=== PATIENT | female | born 1965 | race Caucasian/White ===

== ENCOUNTER → 2021-01-11 12:02 | Outpatient (CLI) | payer OTHER, SELFPAY ==
--- NOTE | 2021-01-11 12:06 | DI.RAD.S_ITS ---
PROCEDURE: XR KNEE RT 3V INDICATIONS: RT SHOULDER/KNEE POST FALL TECHNIQUE: 3 views of the knee were acquired. COMPARISON: None. FINDINGS: Bones: There are degenerative changes of the right knee with medial joint space narrowing. Soft tissues: No joint effusion. No suspicious soft tissue calcifications. IMPRESSION: 1. No acute abnormality. 2. Tricompartmental degenerative changes consistent with osteoarthritis. Dictated by: Aki Moreno M.D. on 01/11/2021 at 18:24 Approved by: Aki Moreno M.D. on 01/11/2021 at 18:25
--- NOTE | 2021-01-11 12:06 | DI.RAD.S_ITS ---
PROCEDURE: XR SHOULDER RT MIN 2V INDICATIONS: RT SHOULDER/KNEE POST FALL TECHNIQUE: 3 views of the shoulder were acquired. COMPARISON: None. FINDINGS: Bones: No fractures or dislocations. No suspicious bony lesions. Visualized ribs appear intact. Soft tissues: No suspicious soft tissue calcifications. IMPRESSION: Mild AC joint osteoarthritis without trauma. Dictated by: Ra Horner M.D. on 01/11/2021 at 15:22 Approved by: Ra Horner M.D. on 01/11/2021 at 15:22
== END ==
PROVIDERS: PCP Registered Nurse; Referring Provider Registered Nurse; Visit Provider Registered Nurse
DX: M25.511 Pain in right shoulder (principal); M19.011 Primary osteoarthritis, right shoulder; M25.561 Pain in right knee
CPT/HCPCS: 73030; 73562

== ENCOUNTER → 2021-01-17 08:52 | Outpatient (CLI) | payer OTHER, SELFPAY ==
[2021-01-17 10:23] LABS: Add Manual Diff / Slide Review NO; Basophils Absolute Auto 100 /uL (0-100); Basophils Percent Auto 0.9 % (0-2); Eosinophils Absolute Auto 300 /uL (0-450); Hematocrit 39.5 % (36-46); Hemoglobin 13.4 g/dL (12.0-16.0); Lymphocytes Absolute Auto 4100 /uL (1100-4500); Lymphocytes Percent Auto 36.1 % (25-40); Mean Corpuscular HGB Conc 33.8 % (30-36); Mean Corpuscular Hemoglobin 27.6 PG (26-34); Mean Corpuscular Volume 81.5 fL (80-100); Monocytes Absolute Auto 700 /uL (0-900); Monocytes Percent Auto 6.4 % (3-14); Neutrophils Absolute Auto 6200 /uL (1500-7000); Neutrophils Percent Auto 53.6 % (50-75); Platelet Count 269 X10^3/uL (150-400); Red Blood Cell Count 4.85 X10^6/uL (4.0-5.2); Red Cell Distribution Width 12.8 % (11.6-14.8); White Blood Cell Count 11.5 X10^3/uL (4.5-11.0)
[2021-01-17 10:25] LABS: Creatinine Urine Random 139.6 mg/dL
[2021-01-17 10:28] LABS: Hemoglobin A1C% w Est Avg Glu 6.9 % (4.0-6.0)
[2021-01-17 10:30] LABS: Microalbumin Urine Random < 0.6 mg/dL (0-1.6)
[2021-01-17 10:34] LABS: Alanine Aminotransferase 35 IU/L (<35); Albumin Globulin Ratio 1.5 (1.0-2.8); Alkaline Phosphatase 100 U/L (38-126); Aspartate Aminotransferase 40 IU/L (14-36); BUN Creatinine Ratio 26.2 (6-22); Bilirubin Total 0.6 mg/dL (0.2-1.3); Blood Urea Nitrogen 16 mg/dL (7-17); Calcium 9.5 mg/dL (8.4-10.2); Carbon Dioxide 27 mmol/L (22-32); Chloride 102 mmol/L (98-107); Cholesterol 120 mg/dL (140-199); Estimated Glomerular Filt Rate > 60.0 mL/min (>60); Globulin 2.7 g/dL (1.7-4.1); Glucose 130 mg/dL (70-100); HDL Cholesterol 40 mg/dL (40-60); HEMOLYSIS < 15 (0-50); LDL Cholesterol Calculated 49 mg/dL (<100); Potassium 4.4 mmol/L (3.4-5.1); Sodium 138 mmol/L (137-145); Total Protein 6.7 g/dL (6.3-8.2); Triglycerides 154 mg/dL (35-150)
[2021-01-17 10:59] LABS: Free T4, Direct Thyroxine 0.94 ng/dL (0.78-2.19)
[2021-01-17 11:13] LABS: Thyroid Stimulating Hormone 2.28 uIU/mL (0.47-4.68)
== END ==
PROVIDERS: PCP Registered Nurse; Referring Provider Registered Nurse; Visit Provider Registered Nurse
DX: E11.9 Type 2 diabetes mellitus without complications (principal); K58.9 Irritable bowel syndrome, unspecified; E78.5 Hyperlipidemia, unspecified; F41.8 Other specified anxiety disorders; G62.9 Polyneuropathy, unspecified
CPT/HCPCS: 36415; 80053; 80061; 82043; 82570; 83036; 84439; 84443; 85025

== ENCOUNTER → 2021-02-05 10:57 | Outpatient (CLI) | payer OTHER, SELFPAY ==
[2021-02-05 12:27] LABS: Add Manual Diff / Slide Review NO; Basophils Absolute Auto 200 /uL (0-100); Basophils Percent Auto 1.3 % (0-2); Eosinophils Absolute Auto 500 /uL (0-450); Eosinophils Percent Auto 4.2 % (2-4); Hematocrit 42.7 % (36-46); Lymphocytes Absolute Auto 4200 /uL (1100-4500); Lymphocytes Percent Auto 35.2 % (25-40); Mean Corpuscular HGB Conc 32.8 % (30-36); Mean Corpuscular Hemoglobin 27.1 PG (26-34); Mean Corpuscular Volume 82.6 fL (80-100); Monocytes Absolute Auto 600 /uL (0-900); Monocytes Percent Auto 5.3 % (3-14); Neutrophils Absolute Auto 6400 /uL (1500-7000); Platelet Count 331 X10^3/uL (150-400); Red Blood Cell Count 5.17 X10^6/uL (4.0-5.2); Red Cell Distribution Width 13.4 % (11.6-14.8); White Blood Cell Count 11.9 X10^3/uL (4.5-11.0)
[2021-02-05 12:51] LABS: Cholesterol 119 mg/dL (140-199); HDL Cholesterol 39 mg/dL (40-60); LDL Cholesterol Calculated 33 mg/dL (<100); Triglycerides 234 mg/dL (35-150)
== END ==
PROVIDERS: PCP Registered Nurse; Referring Provider Registered Nurse; Visit Provider Registered Nurse
DX: E78.5 Hyperlipidemia, unspecified (principal); D72.829 Elevated white blood cell count, unspecified
CPT/HCPCS: 36415; 80061; 85025

== ENCOUNTER → 2021-02-22 12:36 | Outpatient (CLI) | payer OTHER, SELFPAY ==
--- NOTE | 2021-02-22 12:37 | DI.US.S_ITS ---
PROCEDURE: US ABDOMEN LIMITED INDICATIONS: RT INGUINAL PAIN TECHNIQUE: Real-time focused scanning was performed of the abdomen, with image documentation. COMPARISON: None. FINDINGS: Image quality limited secondary to patient body habitus. No definite mass or hernia identified in the right lower quadrant/right groin in the region of reported pain.. IMPRESSION: Limited examination demonstrates no definite hernia or mass in the region of clinical interest. Dictated by: Kasey Funes MD, PhD on 02/22/2021 at 16:44 Approved by: Kasey Funes MD, PhD on 02/22/2021 at 16:44
== END ==
PROVIDERS: PCP Registered Nurse; Referring Provider Registered Nurse; Visit Provider Registered Nurse
DX: R10.31 Right lower quadrant pain (principal)
CPT/HCPCS: 76705

== ENCOUNTER → 2021-03-20 14:26 | Outpatient (CLI) | payer OTHER, SELFPAY ==
[2021-03-20 16:12] LABS: Add Manual Diff / Slide Review NO; Basophils Absolute Auto 100 /uL (0-100); Basophils Percent Auto 0.9 % (0-2); Eosinophils Absolute Auto 300 /uL (0-450); Eosinophils Percent Auto 2.8 % (2-4); Hematocrit 38.6 % (36-46); Hemoglobin 13.1 g/dL (12.0-16.0); Lymphocytes Absolute Auto 4100 /uL (1100-4500); Lymphocytes Percent Auto 38.2 % (25-40); Mean Corpuscular Hemoglobin 28.2 PG (26-34); Mean Corpuscular Volume 82.8 fL (80-100); Monocytes Absolute Auto 600 /uL (0-900); Neutrophils Absolute Auto 5500 /uL (1500-7000); Neutrophils Percent Auto 52.1 % (50-75); Platelet Count 290 X10^3/uL (150-400); Red Blood Cell Count 4.66 X10^6/uL (4.0-5.2); Red Cell Distribution Width 12.8 % (11.6-14.8); White Blood Cell Count 10.6 X10^3/uL (4.5-11.0)
== END ==
PROVIDERS: PCP Registered Nurse; Referring Provider Registered Nurse; Visit Provider Registered Nurse
DX: R89.9 Unspecified abnormal finding in specimens from other organs, systems and tissues (principal)
CPT/HCPCS: 36415; 85025

== ENCOUNTER → 2021-03-22 09:10 | Outpatient (CLI) | payer OTHER, SELFPAY ==
[2021-03-22 10:23] LABS: BUN Creatinine Ratio 24.7 (6-22); Blood Urea Nitrogen 18 mg/dL (7-17); Calcium 9.5 mg/dL (8.4-10.2); Carbon Dioxide 29 mmol/L (22-32); Chloride 102 mmol/L (98-107); Estimated Glomerular Filt Rate > 60.0 mL/min (>60); Glucose 127 mg/dL (70-100); HEMOLYSIS < 15 (0-50); Sodium 137 mmol/L (137-145)
== END ==
PROVIDERS: PCP Registered Nurse; Referring Provider Registered Nurse; Visit Provider Registered Nurse
DX: Z01.812 Encounter for preprocedural laboratory examination (principal); I10 Essential (primary) hypertension
CPT/HCPCS: 36415; 80048

== ENCOUNTER → 2021-03-22 09:26 | Outpatient (CLI) | payer OTHER, SELFPAY ==
--- NOTE | 2021-03-22 09:29 | DI.CT.S_ITS ---
PROCEDURE: CT ABDOMEN PELVIS W CON INDICATIONS: abdominal pain TECHNIQUE: After the administration of oral and IV contrast, axial sections were acquired from the lung bases to the pubic symphysis. Coronal and sagittal reformats were performed. For radiation dose reduction, the following was used: automated exposure control, adjustment of mA and/or kV according to patient size. COMPARISON: [facility], , US ABDOMEN LIMITED, 02/22/2021, 12:17. FINDINGS: Image quality: Excellent. Lung bases: Unremarkable. Heart: No significant findings. ABDOMEN: Liver: Hepatic steatosis. Gallbladder: Not distended. No calcified gallstones. Biliary ducts: Unremarkable. Pancreas: No peripancreatic fluid collection. Spleen: Unremarkable. Adrenal Glands: Unremarkable. Kidneys and Ureters: No hydronephrosis. The mid right ureter is patulous, (4/41). No calcified kidney stones seen. Punctate cortical hypodensity in the right kidney is too small to further characterize. Stomach and Bowel: Stomach, small bowel loops, and colon are unremarkable. A few colonic diverticuli. The appendix is not dilated, (2/68). Peritoneum: No abnormal intraperitoneal fluid. No free air. Ventral Wall: Tiny umbilical hernia. Abdominal Nodes: No retroperitoneal or mesenteric adenopathy by size criteria. Vessels: Aorta and inferior vena cava are normal in size. PELVIS: Pelvic Organs: Uterus is unremarkable. Bladder: No bladder calculus. Pelvic Nodes: No enlarged lymph nodes. Miscellaneous: No inguinal hernias are seen. Bones: Unremarkable. Lumbar edema. IMPRESSION: 1. The appendix is not dilated. 2. Mid right ureter is patulous. No kidney stones demonstrated. No hydronephrosis. No free fluid. 3. Diverticulosis. No diverticulitis. 4. Hepatic steatosis. Dictated by: Tejas Waller M.D. on 03/22/2021 at 12:26 Approved by: Tejas Waller M.D. on 03/22/2021 at 12:35
== END ==
PROVIDERS: PCP Registered Nurse; Referring Provider Registered Nurse; Visit Provider Registered Nurse
DX: Z01.812 Encounter for preprocedural laboratory examination (principal); R10.9 Unspecified abdominal pain; K76.0 Fatty (change of) liver, not elsewhere classified; K57.90 Diverticulosis of intestine, part unspecified, without perforation or abscess without bleeding; I10 Essential (primary) hypertension
CPT/HCPCS: 36415; 74177; 80048; Q9967

== ENCOUNTER → 2021-04-09 19:10 | Outpatient (CLI) | payer OTHER, SELFPAY ==
[2021-04-09 20:56] LABS: COVID19 -Nasal RAPID POSITIVE (Negative)
== END ==
PROVIDERS: PCP Registered Nurse; Visit Provider Physician Assistant
DX: U07.1 COVID-19 (principal)
CPT/HCPCS: 87635

== ENCOUNTER → 2021-05-07 08:18 | Outpatient (CLI) | payer OTHER, SELFPAY ==
--- NOTE | 2021-05-07 08:19 | DI.MG.S_ITS ---
BILATERAL DIGITAL SCREENING MAMMOGRAM 3D/2D WITH CAD: 05/07/2021 CLINICAL: Routine screening. Family history of breast cancer. Comparison is made to exams dated: 05/14/2019 mammogram, 12/01/2015 mammogram, and 12/02/2013 mammogram - outside facility. There are scattered fibroglandular elements in both breasts. Current study was also evaluated with a Computer Aided Detection (CAD) system. No significant masses, calcifications, or other findings are seen in either breast. There has been no significant interval change. IMPRESSION: NEGATIVE There is no mammographic evidence of malignancy. A 1 year screening mammogram is recommended. This exam was interpreted at Station ID: [id number]. NOTE: For mammograms, a report in lay terms will be sent to the patient. Approximately 15% of breast malignancies will not be visualized mammographically. In the management of a palpable breast mass, a negative mammogram must not discourage biopsy of a clinically suspicious lesion. Electronically Signed By: Juan edwards/kathrin:05/07/2021 08:54:47 letter sent: Normal Exam ACR BI-RADS Category 1: Negative [id number]
== END ==
PROVIDERS: PCP Registered Nurse; Referring Provider Registered Nurse; Visit Provider Registered Nurse
DX: Z12.31 Encounter for screening mammogram for malignant neoplasm of breast (principal); Z80.3 Family history of malignant neoplasm of breast
CPT/HCPCS: 77063; 77067

== ENCOUNTER → 2021-05-08 10:14 | Outpatient (CLI) | payer OTHER, SELFPAY ==
--- NOTE | 2021-05-08 10:15 | DI.RAD.S_ITS ---
PROCEDURE: XR LUMBAR SPINE 2-3V INDICATIONS: lower back pain/RADICUOPATHY TECHNIQUE: 3 views of the lumbar spine were acquired. COMPARISON: [facility], CT, CT ABDOMEN PELVIS W CON, 03/22/2021, 10:26. FINDINGS: Bones: 5 [id number] vertebrae are present. Trace spondylolisthesis L4-L5. Endplate osteophytes indicate mild early multilevel disc degeneration. Mild facet joint arthropathy at the L4-L5 and L5-S1 levels.. No vertebral body compression fractures. No suspicious bony lesions. Soft tissues: Overlying bowel gas pattern is normal. No suspicious soft tissue calcifications. IMPRESSION: Mild multilevel spondylosis. Dictated by: Jose C Maeys [facility] Interpreted: Fabiano Victoria MD on 05/08/2021 at 10:57 Transcribed by: MARV on 05/08/2021 at 10:58 Approved by: Fabiano Victoria M.D. on 05/08/2021 at 11:52
[2021-05-08 11:57] LABS: Creatinine Urine Random 207.5 mg/dL
[2021-05-08 11:58] LABS: Hemoglobin A1C% w Est Avg Glu 6.6 % (4.0-6.0)
[2021-05-08 12:01] LABS: Microalbumi Creatinin Ratio Ur 4.3 ug/mg CR (<30); Microalbumin Urine Random 0.9 mg/dL (0-1.6)
== END ==
PROVIDERS: PCP Registered Nurse; Referring Provider Registered Nurse; Visit Provider Registered Nurse
DX: M47.26 Other spondylosis with radiculopathy, lumbar region (principal); E11.9 Type 2 diabetes mellitus without complications
CPT/HCPCS: 36415; 72100; 82043; 82570; 83036

== ENCOUNTER → 2021-06-12 09:55 | Outpatient (CLI) | payer OTHER, SELFPAY ==
[2021-06-12 10:41] LABS: COVID19 -Nasal RAPID Negative (Negative)
== END ==
PROVIDERS: PCP Registered Nurse; Visit Provider Urology
DX: Z20.822 Contact with and (suspected) exposure to COVID-19 (principal)
CPT/HCPCS: 87635; C9803

== ENCOUNTER 2021-06-14 07:07 | Day surgery (SDC) | payer OTHER, SELFPAY ==
[2021-06-12 09:32] VITALS: BMI 47.2
[2021-06-14] VITALS (8 sets, daily range): BP systolic 105–128; BP diastolic 52–77; PULSE 65–80; RESP 10–18; TEMP 36.2–37.1; O2SAT 90–99; BMI 47.2
[2021-06-14] MEDS: LACTATED RINGERS 1,000 ML 42 ML IV (07:43)
--- NOTE | 2021-06-14 07:51 | PM.PREOP ---
Pre-operative Note COVID-19 COVID-19 status: Negative Result date/Date tested (Pos, Neg/Pending): 06/12/21 Interval Note History & Physical reviewed/Exam performed by Physician: Yes Changes to H&P: No
[2021-06-14] MEDS: IOPAMIDOL 15 ML VIAL INJ (08:55)
--- NOTE | 2021-06-14 08:55 | SUR.OPER ---
Lithotomy on padded OR bed, head on pillow, arms secured on padded arm boards at <90 degrees abduction. Legs secured in padded yellow fins stirrups.
[2021-06-14] MEDS: CIPROFLOXACIN 400 MG/200 ML PIGGYBACK 200 MG IV (09:03)
--- NOTE | 2021-06-14 09:13 | P.OP_ITS ---
Procedure & Clinicians Procedure: Cystoscopy with right retrograde pyelogram Same procedure as scheduled: Yes Indications: This is a very pleasant 55-year-old female who presented with complaint of recurring urinary tract infections and right lower quadrant pain. She had imaging which revealed a patulous right ureter without definitive etiology. She presents this time for cystoscopy right retrograde pyelogram and possible cystogram to evaluate for etiology. Surgeon: Jai Modi Click Yes if Unassisted: Yes Anesthesia Type: General Operative Notes Findings: External genitalia are normal. Urethra is normal along its length with normal mucosa. The ureteral orifices in normal position with clear efflux. Mucosa is normal no papillary lesions or other abnormalities are noted. Given that the right ureteral orifices in orthotopic position and the findings of the retrograde pyelogram a cystogram was not necessary. The right ureter was normal. There was a narrowing at the vessels but this drained quickly and easily there was no obstruction. There were no filling defects in the ureter and normal anatomy was observed. There were no stones on the open films. In a word normal cystoscopy and normal retrograde pyelogram save some narrowing at the level of the vessels this was nonobstructive. Closure Type: not applicable Specimen(s): none sent Prosthetic devices, grafts, tissues, transplants, or devices: None Estimated Blood Loss (mL): 0 Blood products transfused: none Procedure in detail: After informed consent was obtained, patient was identified and brought to the operating room. Patient was then placed in a supine position on the operating room table, anesthesia was induced and maintained. After ensu ring an adequate level of anesthesia the patient was transitioned to the lithotomy position, prepped with a sterilizing prepped and draped in a sterile fashion. After prepping, draping and ensuring an adequate level of anesthesia a 21 Maltese cystoscope was passed through the urethra and into the bladder. Cystoscopy was then performed visualizing the entire bladder. A cone-tipped catheter was then impacted in the right ureteral orifice and the collecting system filled with contrast. Serial images were taken and saved via the fluoroscope. With these and hand the catheter was removed and the collecting system observed for drainage. [employer] images were again collected. With favorable findings and hand the bladder was drained, the scope was removed and the patient was awakened and taken to the postanesthesia care unit having tolerated the procedure well. Patient will be discharged home to follow-up in my office in 10-14 days. Complications: none Post-operative Condition: stable Disposition: PACU Plan for aftercare: Patient will be discharged home to follow-up in my office in 10-14 days.
--- NOTE | 2021-06-14 09:23 | DI.RAD.S_ITS ---
PROCEDURE: FL PYELOGRAM RETROGRADE COMPARISON: [facility], CT, CT ABDOMEN PELVIS W CON, 03/22/2021, 10:26. [facility], CR, XR LUMBAR SPINE 2-3V, 05/08/2021, 10:24. INDICATIONS: RT RETROGRADE FINDINGS: The right ureter orifice is cannulized. Injection of the left ureter demonstrates slightly patulous mid to distal right ureter. Filling defects to suggest stones or masses. The right renal pelvis and calyx are normal in morphology. IMPRESSION: Mild patulous mid to distal right ureter. No obstructive stones or masses. Dictated by: Alex Waller M.D. on 06/15/2021 at 12:37 Approved by: Alex Waller M.D. on 06/15/2021 at 12:40
== END 2021-06-14 10:12 | disposition home or self-care (01) ==
PROVIDERS: PCP Registered Nurse; Referring Provider Urology; Visit Provider Urology
PROC: (CPT 52005; principal; 2021-06-14 08:15)
DX: Z87.440 Personal history of urinary (tract) infections (principal); Z87.442 Personal history of urinary calculi; R10.31 Right lower quadrant pain
CPT/HCPCS: 52005; 74420; 76000; 82962; J0744; J2405; J2704; J3010

== ENCOUNTER → 2021-08-20 12:23 | Outpatient (CLI) | payer OTHER, SELFPAY ==
[2021-08-20 13:37] LABS: Add Manual Diff / Slide Review NO; Basophils Absolute Auto 100 /uL (0-100); Eosinophils Absolute Auto 400 /uL (0-450); Eosinophils Percent Auto 3.5 % (2-4); Hemoglobin 13.2 g/dL (12.0-16.0); Lymphocytes Absolute Auto 3400 /uL (1100-4500); Lymphocytes Percent Auto 32.9 % (25-40); Mean Corpuscular HGB Conc 33.9 % (30-36); Mean Corpuscular Hemoglobin 27.7 PG (26-34); Mean Corpuscular Volume 81.7 fL (80-100); Monocytes Absolute Auto 700 /uL (0-900); Monocytes Percent Auto 6.8 % (3-14); Neutrophils Absolute Auto 5800 /uL (1500-7000); Neutrophils Percent Auto 55.8 % (50-75); Platelet Count 291 X10^3/uL (150-400); Red Blood Cell Count 4.78 X10^6/uL (4.0-5.2); Red Cell Distribution Width 13.3 % (11.6-14.8); White Blood Cell Count 10.5 X10^3/uL (4.5-11.0)
[2021-08-20 13:48] LABS: Hemoglobin A1C% w Est Avg Glu 7.2 % (4.0-6.0)
[2021-08-20 14:04] LABS: Alanine Aminotransferase 43 IU/L (<35); Albumin 4.1 g/dL (3.5-5.0); Albumin Globulin Ratio 1.5 (1.0-2.8); Alkaline Phosphatase 80 U/L (38-126); Aspartate Aminotransferase 43 IU/L (14-36); BUN Creatinine Ratio 19.4 (6-22); Bilirubin Total 0.6 mg/dL (0.2-1.3); Blood Urea Nitrogen 14 mg/dL (7-17); Calcium 9.5 mg/dL (8.4-10.2); Carbon Dioxide 30 mmol/L (22-32); Chloride 102 mmol/L (98-107); Cholesterol 137 mg/dL (140-199); Estimated Glomerular Filt Rate > 60.0 mL/min (>60); Globulin 2.7 g/dL (1.7-4.1); Glucose 144 mg/dL (70-100); HDL Cholesterol 39 mg/dL (40-60); HEMOLYSIS < 15 (0-50); LDL Cholesterol Calculated 54 mg/dL (<100); Potassium 4.5 mmol/L (3.4-5.1); Sodium 139 mmol/L (137-145); Total Protein 6.8 g/dL (6.3-8.2); Triglycerides 222 mg/dL (35-150)
== END ==
PROVIDERS: PCP Registered Nurse; Referring Provider Registered Nurse; Visit Provider Registered Nurse
DX: I10 Essential (primary) hypertension (principal); E11.9 Type 2 diabetes mellitus without complications; E78.5 Hyperlipidemia, unspecified
CPT/HCPCS: 36415; 80053; 80061; 83036; 85025

== ENCOUNTER → 2021-10-24 09:21 | Outpatient (CLI) | payer OTHER, SELFPAY ==
--- NOTE | 2021-10-26 18:06 | DIAB.INIT ---
Initial Diabetes Education Assessment Name: Vashti Keith Date: 10/24/21 Time: [id number] Dx: Type II Diabetes Provider: Galilea Kingston presents today with , Eddie, for initial visit regarding T2DM. Limited education in what DM is. Some knowledge on complications. Eddie also has DM. 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 States her father and brother have it without DM. H/o seeing neurologist for this. Started Victoza last week without issue. Slight nausea. Does not check BG, so unclear how this has impacted readings yet. Open to starting SMBG again. +at least 50# over the last two years. Depression is a contributing factor. A lot of changes this past year, ie sold a restaurant for a loss in [place], illness. She goes to [place] to help take care of brother?s with ALS. Leaves again in December. Goes for 3 wks q 2 months. Cooks for them. States she was raised on food makes people happy. Long career in working in restaurant. Reports difficulty with avoiding carbs, especially homemade breads and pasta. Use to eat out daily, has cut down to 1-2 x per week. Has a friend trying weight loss program, [employer]? Food purchasing plan. Not entirely sure that she wants to try this though. Anthropometrics: Ht: 5'5 Wt: 295# Physical Activity: knee pain barrier, walking long distances is painful. Sees PT weekly. Sees chiropractor twice per month. Likes to walk beaches sometimes because has wood she can rest on prn. Self-Monitoring Blood Glucose: None currently. Has meter, but she thinks her strips are . Diabetes Medications: 100 mg Januvia 0.6mg Victoza Pertinent Labs: 7.2% HgA1c 08/20/21 (first time above 7% per her report and EMR) Past Medical History: (Last Reviewed 08/27/21 @ 12:05 by Rachel Pena [facility]) Abdominal pain Abnormal laboratory test result Altered urinary elimination pattern Arthritis of both knees Carpal tunnel syndrome (~2018) Cervical cancer screening Chicken pox (~1971) Chronic back pain (~2013) COVID-19 (04/09/21) Lost taste/smell, sinus congestion, fatigue, did not require hospitalization Depression Diabetes GERD (gastroesophageal reflux disease) H/O laparoscopy Heavy menstrual period Herpes History of section (~1986) History of chronic urinary tract infection History of knee surgery (~2013) Torn meniscus History of left oophorectomy (~2008) History of renal calculi History of surgery (~2009) Ablation History of tonsillectomy (~1974) Inflammatory bowel syndrome Kidney stones (~2002) Lower back pain Neurological disease Painful menstrual periods Restless leg syndrome (~2011) Right groin pain Right groin pain Right shoulder pain (~2017) Right ureter dilated Rosacea Skin cancer (~2005) Sleep apnea (~2011) Vision changes Intervention: This participant was very receptive. Provided appropriate educational handouts. Discussed the following topics: Completed intake assessment. Discussed barriers to care. Pathophysiology of type 2 diabetes HgA1c, its correlation to blood glucose numbers, and rationale for goal Importance of self-monitoring, how often, and when to check. Suggested checking at different times to evaluate meals Plate Method, impact of macronutrients on blood sugar General recommended servings for carbohydrates at meals and snacks Role of physical activity and following guidelines for safety Self care and ability to take care of others if she is running on empty Created SMART goals for patient self-care and success. Goals: Start checking Bg 1-2 x per week: FBG and 1-2 hr pc Call for SMBG strips rx make pasta and measure portion Follow-up: CHHAYA OSBORN follow-up in 2-3 weeks Lexi Badillo RDN, ANURAG Certified Diabetes Care and Screen Tacker P: [phone] Thank you for this referral
== END ==
PROVIDERS: PCP Registered Nurse; Referring Provider Registered Nurse; Visit Provider Registered Nurse
DX: E11.9 Type 2 diabetes mellitus without complications (principal)
CPT/HCPCS: G0108

== ENCOUNTER 2021-11-07 07:50 | Day surgery (SDC) | payer OTHER, SELFPAY ==
--- NOTE | 2021-11-07 | PATH_ITS ---
[facility] Accession Number: [id number] No. of containers..01 Tissue . 01 Material submitted: . esophagus - DISTAL ESOPHAGUS . 02 Diagnosis: Distal Esophagus, Biopsy: Squamous epithelium with no diagnostic abnormality. Intraepithelial eosinophils are not increased. Negative for dysplasia and malignancy. MRV 11/12/2021 1048 Local . 02 Electronically signed: . Matthew Bermudez MD, PhD, Pathologist NPI- [id number] . 01 Gross description: . DISTAL ESOPHAGUS: Received in formalin is 1 fragment(s) of hedrick, soft tissue measuring 0.3 x 0.3 x 0.1 cm submitted entirely in 1 cassette(s) /TRC 11/09/2021 1102 Local . 02 Pathologist provided ICD-10: R13.14, K21.9 . 02 CPT . 144060 Specimen Comment: A courtesy copy of this report has been sent to [phone] Performed at: 01 [facility] [address], [place], [place] [id number] MD Juan Ho MD Phone: [phone] Performed at: 02 [facility] [address] [place], [place] [id number] MD Lyudmila Choe MD Phone: [phone]
[2021-11-07 08:29] VITALS: BP 140/91; PULSE 80; RESP 18; TEMP 36.8; O2SAT 97; BMI 47.2
[2021-11-07 08:37] LABS: COVID19 -Nasal RAPID Negative (Negative)
--- NOTE | 2021-11-07 08:52 | SUR.OPER ---
H&P REPEATED.. COMP[UTER ISSUE
--- NOTE | 2021-11-07 08:54 | PM.PREOP ---
Pre-operative Note COVID-19 COVID-19 status: Negative Interval Note History & Physical reviewed/Exam performed by Physician: Yes Changes to H&P: No ASA Class (for procedural sedation): III
--- NOTE | 2021-11-07 08:56 | PM.OP.EGD ---
Operative Date/Time/Diagnoses Date of procedure: 11/07/21 Pre-op diagnosis: See indication and findings Procedure & Clinicians Study performed: EGD Indications: GE reflux with cervical dysphagia Surgeon: Ayana Meehan Procedure Notes Procedure in detail: After informed consent was obtained the patient was placed in left lateral decubitus position. The video upper scope was placed into the oropharynx and with the patient's help swelled into the esophagus. The esophagus stomach and duodenum were carefully examined. On withdrawal retroflexed view the GE junction was performed. The scope was removed. The patient tolerated procedure well. Blood loss none Complications none Sedation mac Findings 1. Completely normal esophagus with normal squamocolumnar junction. Biopsies taken in the distal esophagus to rule out eosinophilic esophagitis. 2. Extensive retained very old food in stomach and duodenum. 3. Otherwise negative EGD. Patient will continue current medications and we will await pathology. She can follow with Dr. Gerry Gao his next available appointment or telemedicine.
[2021-11-07 09:04] VITALS: BP 161/95; PULSE 91; RESP 18; TEMP 36.5; O2SAT 96
[2021-11-07 09:08] VITALS: BP 161/81; PULSE 86; RESP 16; O2SAT 97
[2021-11-07 09:13] VITALS: BP 151/97; PULSE 89; PULSE 96; RESP 15; RESP 159; O2SAT 96
[2021-11-07 09:21] VITALS: BP 146/81; PULSE 73; RESP 18; O2SAT 96
[2021-11-07 09:25] VITALS: BP 150/70; PULSE 74; RESP 17; O2SAT 96
== END 2021-11-07 09:35 | disposition home or self-care (01) ==
PROVIDERS: PCP Registered Nurse; Referring Provider Internal Medicine Gastroenterology; Visit Provider Internal Medicine Gastroenterology
PROC: 0DJ08ZZ Inspection of Upper Intestinal Tract, Via Natural or Artificial Opening Endoscopic (ICD-10-PCS; CPT 43235; principal; 2021-11-07 09:00)
DX: K21.9 Gastro-esophageal reflux disease without esophagitis (principal); R13.14 Dysphagia, pharyngoesophageal phase; Z20.822 Contact with and (suspected) exposure to COVID-19
CPT/HCPCS: 43239; 87635; J2704

== ENCOUNTER → 2021-11-13 09:41 | Outpatient (CLI) | payer OTHER, SELFPAY ==
--- NOTE | 2021-11-13 11:10 | DIAB.MNTFU ---
Follow-up Diabetes Medical Nutrition Therapy Assessment Name: Vashti Keith Date: 11/13/21 Time: [id number] Dx: Type II Diabetes Vsahti presents for follow-up regarding T2DM and has questions about recent EGD. Switching PCP to Jas this month since Galiela Felton has left. Had EGD recently which revealed very old food in the stomach and duodenum. Vashti has DM and a long personal and family hx of neuropathy. This RD wonders if she is experiencing gastroparesis. Endorses LT use of omeprazole. Recently started pregabalin. States she gets an upper GI pain sometimes, not quite heartburn from her report. Also endorses limited appetite. Will often feel full in the morning like she just ate. Reports 3 weeks ago waking c N/V and emesis seemed to be what she had eaten the night before. Currently on a GLP1. Some concerns for this and slow gastric emptying, though may help if at all r/t hyperglycemia. Reports feeling a tickling in her throat and uncomfortable cough. Gets better with warm beverage. More prevalent with rice, peas, or corn. H/o IBS-D. Avoids milk Has been avoiding fruits for BG. Has not been checking BG d/t no supplies. Reports difficulty with night vision. Wants to see optimization specialist, but plans to discuss with PCP first. Anthropometrics: Ht: 65 Wt: 295# reported Physical Activity: Not discussed today Self-Monitoring Blood Glucose: None. No meter supplies and has meter from 3-4 years ago. Has not yet reached out for new rx. Asked about freestyle roldan. Diabetes Medications: 100 mg Januvia 1.5mg Trulicity Pertinent Labs: 7.2% HgA1c 08/20/21 (first time above 7% per her report and EMR) Past Medical History: (Last Reviewed 08/27/21 @ 12:05 by Rachel Pena [facility]) Abdominal pain Abnormal laboratory test result Altered urinary elimination pattern Arthritis of both knees Carpal tunnel syndrome (~2018) Cervical cancer screening Chicken pox (~1971) Chronic back pain (~2013) COVID-19 (04/09/21) Lost taste/smell, sinus congestion, fatigue, did not require hospitalization Depression Diabetes GERD (gastroesophageal reflux disease) H/O laparoscopy Heavy menstrual period Herpes History of section (~1986) History of chronic urinary tract infection History of knee surgery (~2013) Torn meniscus History of left oophorectomy (~2008) History of renal calculi History of surgery (~2009) Ablation History of tonsillectomy (~1974) Inflammatory bowel syndrome Kidney stones (~2002) Lower back pain Neurological disease Painful menstrual periods Restless leg syndrome (~2011) Right groin pain Right groin pain Right shoulder pain (~2017) Right ureter dilated Rosacea Skin cancer (~2005) Sleep apnea (~2011) Vision changes Nutrition Rx: Low fiber ; low fat Nutrition Diagnosis: Altered GI function r/t slow gut motility predicted aeb EGD indicating old food present, pt reported n/v hours after food ingestion, and limited appetite. Intervention: This participant was very receptive. Provided appropriate educational handouts. Discussed the following topics: Potential for slow gut motility given s/s Avoiding high fat and high fiber foods Reviewed MNT for gastroparesis but did emphasize that this may not be the issue. Encouraged her to discuss with PCP and potentially GI specialist. Encouraged getting a new meter and supplies rx. Discussed impact of slow motility of BG mgmgnt Created SMART goals for patient self-care and success. Goals: Start checking Bg 1-2 x per week: FBG and 1-2 hr pc- in progress Call for SMBG strips rx- in progress make pasta and measure portion- not discussed Try low fat, low fiber diet- new Ask insurance about roldan coverage prior to PCP visit- new Call or portal message provider for meter supply rx- new Follow-up: CHHAYA OSBORN follow-up in 3-4 weeks Lexi Badillo RDN, ANURAG Certified Diabetes Care and Spool Worker P: [phone] Thank you for this referral
== END ==
PROVIDERS: Referring Provider Registered Nurse; Visit Provider Registered Nurse
DX: E11.9 Type 2 diabetes mellitus without complications (principal); Z79.84 Long term (current) use of oral hypoglycemic drugs; Z79.899 Other long term (current) drug therapy; Z71.3 Dietary counseling and surveillance
CPT/HCPCS: 97803

== ENCOUNTER → 2021-12-18 13:33 | Outpatient (CLI) | payer OTHER, SELFPAY ==
--- NOTE | 2021-12-18 17:28 | DIAB.FU ---
Follow-up Diabetes Education Assessment Name: Vashti Keith Date: 12/18/21 Time: 1-130p Dx: Type II Diabetes Today's visit was completed virtually via the [employer] platform. Reports seeing PCP since last visit. Has not tried the lower fiber diet discussed, but has been conscious of fat intake and avoiding most sat fats. Though endorses being unaware of saturated fat content of coconut yogurt. Taking a road trip to see her family. Father recently diagnosed with cancer and starting chemo. She has been prepping food, ie tuna sandwiches, veggies. She is trying not to stop for fast food during trip. Avoiding fried food. Will be gone for a month. Has h/o depression with over consumption of kcals per report. Trying to be preventative about this. Plans to see GI specialist, but has called them and not heard back. PCP d/c [facility]. Reports she feels better now off the Januvia. Feels less sleepy. Has questions about fatty liver and labs associated. Physical Activity: trying to get outside more since weather is nice. Yard work and playing with grandchildren. On this trip, she brought a small stationary pedal bike, pilates mats, stretching band. Self-Monitoring Blood Glucose: Got SMBG supplies last week. Checking BG, mostly fasting. Was asking about Jeannette last visit, confirmed that insurance will not cover and she would prefer to use glucometer at this time. Highest 134 fasting Generally 114-130mg/dL 240 late afternoon One day didn?t feel well and BG was 95 No pc readings Diabetes Medications: 100 mg Januvia 1.5mg Trulicity Pertinent Labs: 7.2% HgA1c 08/20/21 (first time above 7% per her report and EMR) Past Medical History: (Last Reviewed 08/27/21 @ 12:05 by ALANIS Casillas) Abdominal pain Abnormal laboratory test result Altered urinary elimination pattern Arthritis of both knees Carpal tunnel syndrome (~2018) Cervical cancer screening Chicken pox (~1971) Chronic back pain (~2013) COVID-19 (04/09/21) Lost taste/smell, sinus congestion, fatigue, did not require hospitalization Depression Diabetes GERD (gastroesophageal reflux disease) H/O laparoscopy Heavy menstrual period Herpes History of section (~1986) History of chronic urinary tract infection History of knee surgery (~2013) Torn meniscus History of left oophorectomy (~2008) History of renal calculi History of surgery (~2009) Ablation History of tonsillectomy (~1974) Inflammatory bowel syndrome Kidney stones (~2002) Lower back pain Neurological disease Painful menstrual periods Restless leg syndrome (~2011) Right groin pain Right groin pain Right shoulder pain (~2017) Right ureter dilated Rosacea Skin cancer (~2005) Sleep apnea (~2011) Vision changes Intervention: This participant was very receptive. Provided appropriate educational handouts. Discussed the following topics: Recent blood sugar results and trends and checking a few pc readings if possible Review of general nutrition recommendations and current intake Saturated fat review Fatty liver labs and nutrition Physical activity plan and impact on blood sugars Plan for avoiding over eating and emotional eating Created SMART goals for patient self-care and success. Goals: Try low fat, low fiber diet- 50% met Ask insurance about jeannette coverage prior to PCP visit- met Call or portal message provider for meter supply rx- met Check 1-2 hours after meal- new Try to be active while on the trip- new Be careful of saturated fats- new Follow-up: CHHAYA OSBORN follow-up in February per pt request Lexi Badillo RDN, ANURAG Certified Diabetes Care and Billing And Accounting Staff Assistant P: [phone] Thank you for this referral
== END ==
PROVIDERS: PCP Registered Nurse Diabetes Educator; Referring Provider Registered Nurse Diabetes Educator; Visit Provider Registered Nurse Diabetes Educator
DX: E11.9 Type 2 diabetes mellitus without complications (principal); Z79.84 Long term (current) use of oral hypoglycemic drugs; Z79.899 Other long term (current) drug therapy; Z71.3 Dietary counseling and surveillance
CPT/HCPCS: G0108

== ENCOUNTER → 2022-03-19 10:34 | Outpatient (CLI) | payer OTHER, SELFPAY ==
[2022-03-19 11:27] LABS: Hemoglobin A1C% w Est Avg Glu 6.5 % (4.0-6.0)
[2022-03-19 12:17] LABS: Alanine Aminotransferase 25 IU/L (<35); Albumin 4.1 g/dL (3.5-5.0); Albumin Globulin Ratio 1.6 (1.0-2.8); Alkaline Phosphatase 87 U/L (38-126); Aspartate Aminotransferase 27 IU/L (14-36); BUN Creatinine Ratio 22.8 (6-22); Bilirubin Total 0.6 mg/dL (0.2-1.3); Blood Urea Nitrogen 18 mg/dL (7-17); Calcium 9.1 mg/dL (8.4-10.2); Carbon Dioxide 29 mmol/L (22-32); Chloride 103 mmol/L (98-107); Cholesterol 117 mg/dL (140-199); Estimated Glomerular Filt Rate > 60 mL/min (>60); Globulin 2.6 g/dL (1.7-4.1); Glucose 105 mg/dL (70-100); HDL Cholesterol 42 mg/dL (40-60); HEMOLYSIS < 15 (0-50); LDL Cholesterol Calculated 40 mg/dL (<100); Potassium 4.3 mmol/L (3.4-5.1); Sodium 139 mmol/L (137-145); Total Protein 6.7 g/dL (6.3-8.2); Triglycerides 176 mg/dL (35-150)
[2022-03-19 12:26] LABS: Microalbumi Creatinin Ratio Ur 7.6 ug/mg CR (<30); Microalbumin Urine Random 0.9 mg/dL (0-1.6)
[2022-03-19 12:45] LABS: TSH w/ Reflex to FT4 1.39 uIU/mL (0.47-4.68)
== END ==
PROVIDERS: PCP Registered Nurse Diabetes Educator; Referring Provider Registered Nurse Diabetes Educator; Visit Provider Registered Nurse Diabetes Educator
DX: E11.9 Type 2 diabetes mellitus without complications (principal); E78.5 Hyperlipidemia, unspecified; I10 Essential (primary) hypertension; R74.8 Abnormal levels of other serum enzymes
CPT/HCPCS: 36415; 80053; 80061; 82043; 82570; 83036; 84443

== ENCOUNTER → 2022-03-26 14:45 | Outpatient (CLI) | payer OTHER, SELFPAY ==
--- NOTE | 2022-03-26 16:45 | DIAB.MNTFU ---
Follow-up Diabetes Medical Nutrition Therapy Assessment Name: Vashti Keith Date: 03/26/22 Time: 836-330p Dx: Type II Diabetes Provider: Jasanabela Kingston presents for telehealth follow-up via the [employer] platform. Improved HgA1c at 6.5% and reported weight loss of 12# since November. Unfortunately, she feels that these improvements are primarily r/t not eating due to loss of taste and smell. No taste or smell, no covid, no sickness otherwise. Increased stress with father's health in [place]. Furthermore, her 31 y/o son diagnosed with testicular cancer. If eats a food with a lot of carbs, feels sick. Had covid last March and lost taste and smell completely. Never came completely back. Now it is gone again. Sometimes gets a metallic taste. Enjoying spicy foods. Peaches and cucumbers have some flavor. Lack of flavor impacting motivation to cook or eat regular meals Has 04/10 PCP visit Diet recall: B: coconut yogurt and blueberries +/- almonds or granola or toast x2 with butter and jam or nothing L: couple slices of ham or ham and fruit Sn: none D: half of a personal watermelon; 2-3oz protein, roasted cauliflower or broccoli, green beans with teriyaki, no carbs or 2c rice with meals Sn: none Beverages: 32oz x 1-2water; 1c coffee and sometimes diet mt dew; sun tea unsweetened Avoiding dairy foods: cheese, ice cream, dairy yogurt (helped with abdominal pain) Anthropometrics: Ht: 65 Wt: 282# reported Weight history: 94#11/30 Physical Activity: Using yoga mat and leg resistance bands, aims for every day. Increased walking with son recently. Son had her download pedometer on her phone. Aiming for 10k. Most days 6285-0703 steps per day. Self-Monitoring Blood Glucose: 110-120 FBG; 90s shaky in the afternoon when she has not eaten; none recorded after meal Diabetes Medications: 1.5 mg Trulicity Pertinent Labs: 6.5% HgA1c 03/2022 7.2% HgA1c 08/2021 Past Medical History: (Last Updated 01/28/22 @ 18:25 by ALANIS Xiong) Abdominal pain Abnormal laboratory test result Altered urinary elimination pattern Arthritis of both knees Carpal tunnel syndrome (~2018) Cervical cancer screening Chicken pox (~1971) Chronic back pain (~2013) Chronic radicular low back pain COVID-19 (04/09/21) Lost taste/smell, sinus congestion, fatigue, did not require hospitalization Depression Diabetes GERD (gastroesophageal reflux disease) Heavy menstrual period Herpes History of chronic urinary tract infection History of renal calculi Inflammatory bowel syndrome Kidney stones (~2002) Lower back pain Neurological disease Painful menstrual periods Restless leg syndrome (~2011) Right groin pain Right groin pain Right shoulder pain (~2017) Right ureter dilated Rosacea Skin cancer (~2005) Sleep apnea (~2011) Vision changes Nutrition Rx: 30-45g CHO per meal 15-30g CHO per snack Nutrition Diagnosis: inconsistent energy intake r/t loss of taste and smell aeb pt report Intervention: This participant was very receptive. Provided appropriate educational handouts. Discussed the following topics: Blood sugar review and trends. Recent HgA1c Strategies for managing loss of taste and smell Carbs recs for rice portions Meal planning for additional flavor and balancing BG Physical activity plan and progress Created SMART goals for patient self-care and success. Goals: Check 1-2 hours after meal- not met Try to be active while on the trip- improved Be careful of saturated fats- in progress Try meal plan discussed with more flavor- new Check out added flavor cook book- new Follow-up: CHHAYA OSBORN follow-up in May. Vashti would like to check in after a couple months. She has concerns that if her taste returns that her BG could increase. Will follow-up in two months. Lexi Badillo RDN, [facility] Certified Diabetes Care and Sizing Machine Tender P: [phone] Thank you for this referral
== END ==
PROVIDERS: PCP Registered Nurse Diabetes Educator; Referring Provider Registered Nurse Diabetes Educator; Visit Provider Registered Nurse Diabetes Educator
DX: E11.9 Type 2 diabetes mellitus without complications (principal); Z79.899 Other long term (current) drug therapy; Z71.3 Dietary counseling and surveillance
CPT/HCPCS: 97803

== ENCOUNTER → 2022-03-28 09:42 | Outpatient (CLI) | payer OTHER, SELFPAY ==
--- NOTE | 2022-03-28 | DI.US.S_ITS ---
PROCEDURE: US RENAL COMPLETE INDICATIONS: Megaloureter TECHNIQUE: Real-time scanning was performed of the kidneys and bladder, with image documentation. COMPARISON: [facility], , [place] PYELOGRAM RETROGRADE, 06/14/2021, 9:23. FINDINGS: Kidneys: Kidneys are normal in size. Right kidney measures 13.7 cm long; left kidney measures 12.3 cm long. Right renal cortical thickness is 1.4 cm; left renal cortical thickness is 1.5 cm. Renal cortical echotexture is normal. No hydronephrosis or nephrolithiasis. There is an ill-defined 0.8 x 0.7 x 0.7 cm hypoechoic exophytic lesion off the lower pole of the right kidney which likely represents a subcentimeter cyst but is incompletely characterized due to small size. Posterior acoustic enhancement corroborates this finding. Bladder: Pre-void bladder volume is 97 mL. Post-void residual is 8 mL. Pre-void images demonstrate no intraluminal masses or stones. On pre-void images, neither ureteral jets are noted with color Doppler interrogation. (Of note, ureteral jets may not be detectable in up to 25% of cases due to insufficient differences in specific gravity between ureteral and bladder urine). Miscellaneous: No free pelvic fluid. IMPRESSION: 1. No hydronephrosis or nephrolithiasis. 2. Probable subcentimeter simple right renal cyst. Dictated by: Francine Rodriguez M.D. on 03/28/2022 at 12:40 Approved by: Francine Rodriguez M.D. on 03/28/2022 at 12:52
--- NOTE | 2022-03-28 09:44 | DI.MRI.S_ITS ---
PROCEDURE: MR LUMBAR SPINE WO CON INDICATIONS: eval LBP/lumbosacral radiculopathy TECHNIQUE: Noncontrast sagittal T1 spin echo and T2 fast echo, sagittal STIR, and T2 fast spin echo through the lumbar spine. In cases with scoliosis, additional coronal T2 fast spin echo may be performed. COMPARISON: None. FINDINGS: Image quality: Excellent. Alignment and Curvature: There is normal bony alignment. Bone Marrow: Marrow is of normal overall signal. No acute vertebral body compression fractures. Spinal Cord: Conus medullaris terminates at the L1-L2 level. Visualized cord demonstrates normal signal and size. Paraspinous Soft Tissues: No paravertebral masses. T12-L1: No canal stenosis or foraminal stenosis. L1-L2: No canal stenosis or foraminal stenosis. L2-L3: Mild facet hypertrophy. No canal stenosis or foraminal stenosis. L3-L4: Facet hypertrophy. No canal stenosis or foraminal stenosis. L4-L5: Facet hypertrophy. Mild disc bulge. Borderline canal stenosis. No significant foraminal narrowing. L5-S1: Diffuse disc bulge. Prominent facet hypertrophy. No significant canal stenosis. Eabo-pa-cjxkhhlm bilateral foraminal narrowing. IMPRESSION: 1. Multilevel facet arthropathy. 2. Borderline canal stenosis at L4-L5. Dictated by: Holland Collazo M.D. on 03/28/2022 at 13:36 Approved by: Holland Collazo M.D. on 03/28/2022 at 13:46
== END ==
PROVIDERS: PCP Registered Nurse Diabetes Educator; Referring Provider Registered Nurse Diabetes Educator; Visit Provider Registered Nurse Diabetes Educator
DX: N28.82 Megaloureter (principal); M47.26 Other spondylosis with radiculopathy, lumbar region; M47.27 Other spondylosis with radiculopathy, lumbosacral region
CPT/HCPCS: 72148; 76770

== ENCOUNTER → 2022-05-23 11:00 | Outpatient (CLI) | payer OTHER, SELFPAY ==
--- NOTE | 2022-05-23 | DI.MG.S_ITS ---
BILATERAL DIGITAL SCREENING MAMMOGRAM 3D/2D WITH CAD: 05/23/2022 CLINICAL: Routine screening. Family history of breast cancer. Comparison is made to exams dated: 05/07/2021 mammogram - [facility], 05/14/2019 mammogram, and 12/01/2015 mammogram - outside facility. There are scattered areas of fibroglandular density in both breasts (category b / 25%-50% glandular tissue). Current study was also evaluated with a Computer Aided Detection (CAD) system. No significant masses, calcifications, or other findings are seen in either breast. There has been no significant interval change. IMPRESSION: NEGATIVE There is no mammographic evidence of malignancy. A 1 year screening mammogram is recommended. Based on the Tyrer Cuzick model (a risk assessment model) the patient's lifetime risk is 6.5% and her 10 year risk is 2.0%. According to the ACR, ACS, and NCCN guidelines, an annual breast MRI exam along with mammogram is recommended if the patient's lifetime risk is 20% or greater. This exam was interpreted at Station ID: [id number]. NOTE: For mammograms, a report in lay terms will be sent to the patient. Approximately 15% of breast malignancies will not be visualized mammographically. In the management of a palpable breast mass, a negative mammogram must not discourage biopsy of a clinically suspicious lesion. Electronically Signed By: Kenyon Nagel M.D., jr/kathrin:05/23/2022 13:48:37 letter sent: Normal Exam ACR BI-RADS Category 1: Negative 3341F
== END ==
PROVIDERS: PCP Registered Nurse Diabetes Educator; Referring Provider Registered Nurse Diabetes Educator; Visit Provider Registered Nurse Diabetes Educator
DX: Z12.31 Encounter for screening mammogram for malignant neoplasm of breast (principal); Z80.3 Family history of malignant neoplasm of breast
CPT/HCPCS: 77063; 77067

== ENCOUNTER → 2022-10-04 12:18 | Outpatient (CLI) | payer OTHER, SELFPAY ==
[2022-10-04 14:13] LABS: Hemoglobin A1C% w Est Avg Glu 6.7 % (4.0-6.0)
== END ==
PROVIDERS: PCP Registered Nurse Diabetes Educator; Referring Provider Registered Nurse Diabetes Educator; Visit Provider Registered Nurse Diabetes Educator
DX: E11.9 Type 2 diabetes mellitus without complications (principal)
CPT/HCPCS: 36415; 83036

== ENCOUNTER 2022-10-07 07:35 | Day surgery (SDC) | payer OTHER, SELFPAY ==
--- NOTE | 2022-10-07 | PATH_ITS ---
[facility] Accession Number: [id number] No. of containers..04 Tissue . 01 Material submitted: . PART A: duodenum - DUODENUM BIOPSY PART B: gastrointestinal site - ANTRUM BIOPSY PART C: colon - RANDOM COLON BIOPSIES PART D: colon - DESCENDING COLON POLYP . 01 Diagnosis: A. Duodenum, Biopsy: Duodenal mucosa with no diagnostic abnormality. Negative for active inflammation, features of sprue, dysplasia, or malignancy. . B. Stomach, Antrum, Biopsy: Antral mucosa with mild chronic gastritis. Negative for Helicobacter by immunohistochemistry. Negative for intestinal metaplasia. Negative for dysplasia and malignancy. . C. Random Colon, Biopsies: Colonic mucosa with no diagnostic abnormality. Negative for active, chronic, and microscopic colitis. Negative for dysplasia and malignancy. . D. Descending Colon, Polyp, Biopsy: Tubular adenoma, two fragments. [facility] 10/10/2022 1752 Local . 01 Electronically signed: . Lyudmila Choe MD, Pathologist NPI- [id number] . 01 Gross description: . Part A: DUODENUM BIOPSY: Received in formalin are 4 fragment(s) of hedrick, soft tissue measuring 0.3 x 0.1 x 0.1 cm to 0.2 x 0.1 x 0.1 cm submitted entirely in 1 cassette(s) Part B: ANTRUM BIOPSY: Received in formalin are 2 fragment(s) of hedrick, soft tissue measuring 0.2 x 0.1 x 0.1 cm to 0.2 x 0.1 x 0.1 cm submitted entirely in 1 cassette(s) Part C: RANDOM COLON BIOPSIES: Received in formalin is 1 fragment(s) of hedrick, soft tissue measuring 0.5 x 0.2 x 0.1 cm submitted entirely in 1 cassette(s) Part D: DESCENDING COLON POLYP: Received in formalin are 2 fragment(s) of hedrick, soft tissue measuring 0.3 x 0.2 x 0.1 cm to 0.2 x 0.1 x 0.1 cm submitted entirely in 1 cassette(s) /CPE 10/08/2022 0905 Local . 01 Microscopic: . B. An immunohistochemical stain was performed to evaluate for Helicobacter organisms and is negative. The control stain showed appropriate reactivity. . * This test was developed and its performance characteristics determined by [facility]. It has not been cleared or approved by the U.S. Food and Drug Administration. The FDA has determined that such clearance or approval is not necessary. This test is used for clinical purposes. It should not be regarded as investigational or for research. . 01 Pathologist provided ICD-10: D12.4 . 01 CPT . 796416, 851354, 322417, 461021, I18425 Specimen Comment: A courtesy copy of this report has been sent to [phone] Performed at: 01 [facility] [address] [place] [address], [place], [place] [id number] MD Juan Ho MD Phone: [phone]
--- NOTE | 2022-10-07 08:03 | P.HP_ITS ---
History of Present Illness History of Present Illness Date Patient Seen: 10/07/22 Time Patient Seen: 08:03 Chief complaint: SDC Narrative: I reviewed the note by Dr. Taylor. No changes. GERD, nausea, incomplete EGD last year. Family history of colon cancer in her dad. Patient History Medical History Abdominal pain Abnormal laboratory test result Altered urinary elimination pattern Arthritis of both knees Carpal tunnel syndrome (~2018) Cervical cancer screening Chicken pox (~1971) Chronic back pain (~2013) Chronic radicular low back pain COVID-19 (04/09/21) Depression Diabetes GERD (gastroesophageal reflux disease) Heavy menstrual period Herpes History of chronic urinary tract infection History of renal calculi Inflammatory bowel syndrome Kidney stones (~2002) Lower back pain Neurological disease Painful menstrual periods Restless leg syndrome (~2011) Right groin pain Right groin pain Right shoulder pain (~2017) Right ureter dilated Rosacea Skin cancer (~2005) Sleep apnea (~2011) Vision changes Surgical History Anesthesia H/O laparoscopy History of section (~1986) History of knee surgery (~2013) History of left oophorectomy (~2008) History of surgery (~2009) History of tonsillectomy (~1974) Family & Social History Family History Daughter Mast cell activation Fibromyalgia PCOS (polycystic ovarian syndrome) Interstitial cystitis Father Neuropathy Mother Breast cancer Hypertension Cancer Brother Diabetes mellitus Inflammatory bowel disease Sister Hypertension Grandmother Cancer Hyperlipidemia Hypertension Stroke Grandfather Cancer Grandmother Mental health problem Social History: household members spouse Tobacco & Substance use: Smoking Status Former smoker alcohol intake former Substance Use Type does not use Meds Home Medications and Allergies Home Medications Medication Instructions Recorded Confirmed Type cetirizine 10 mg tablet (Zyrtec) 10 mg PO DAILY PRN sneezing 11/26/21 10/07/22 History cholecalciferol (vitamin D3) 50 50 mcg PO DAILY 11/26/21 10/07/22 History mcg (2,000 unit) capsule gxausqicjibn-Nn-maiw-minerals 18 tab PO 11/26/21 04/10/22 History mg-0.4 mg tablet blood sugar diagnostic (Blood #100 ea 11/29/21 04/10/22 Rx Glucose Test strips) blood-glucose meter #1 ea 11/29/21 04/10/22 Rx lancets 33 gauge (BD Ultra Fine #100 ea 11/29/21 04/10/22 Rx Lancets) atorvastatin 40 mg tablet 40 mg PO DAILY #90 tabs 04/11/22 10/07/22 Rx celecoxib 100 mg capsule (Celebrex) 200 mg PO DAILY #180 caps 04/11/22 10/07/22 Rx dulaglutide 1.5 mg/0.5 mL 1.5 mg (0.5 mL) SUBCUT QWEEK #6 mL 04/11/22 10/07/22 Rx subcutaneous pen injector ([employer]) lisinopril 2.5 mg tablet 2.5 mg PO DAILY #90 tabs 04/11/22 05/09/22 Rx omeprazole 40 mg capsule,delayed 40 mg PO DAILY GERD #90 caps 04/11/22 10/07/22 Rx release sertraline 50 mg tablet 50 mg PO DAILY #90 tabs 08/15/22 10/07/22 Rx pregabalin 100 mg capsule (Lyrica) 100 mg PO TID #270 caps 08/29/22 10/07/22 Rx Allergies Allergy/AdvReac Type Severity Reaction Status Date / Time penicillin G Allergy Severe Hives, Verified 10/07/22 07:42 sores, hard to breath Sulfa (Sulfonamide Allergy Severe Sore, Verified 10/07/22 07:42 Antibiotics) hives, hard to breath metformin AdvReac Intermediate abdominal Verified 10/07/22 07:42 pain/cramps, multiple diarrheas Review of Systems Review of Systems ROS: Yes All systems reviewed with the patient and are negative except as otherwise documented Exam Const General: cooperative HENMT Head: normal to inspection Eyes General: appearance normal, both eyes and all related structures Neck Neck: normal visual inspection Chest Chest: normal inspection of the chest Resp Effort & Inspection: normal respiratory effort Cardio Rate: regular rate GI Inspection: normal to inspection Skin General: no rashes or lesions noted Neuro General: patient alert and patient awake Extrem General: normal to inspection and no pedal edema Psych Appearance: grossly normal Assessment & Plan Assessment & Plan narrative: 57-year-old female with GERD, nausea, family history of colon cancer in her dad. EGD colonoscopy are pursued today. Time Spent With Patient Critical Care time: I spent a total of [] minutes of critical care time on this patient's care today; this time is exclusive of procedural time.
--- NOTE | 2022-10-07 08:04 | PM.PREOP ---
Pre-operative Note Interval Note History & Physical reviewed/Exam performed by Physician: Yes Changes to H&P: No ASA Class (for procedural sedation): III
[2022-10-07] MEDS: LACTATED RINGERS 1,000 ML 84 ML IV (08:07)
[2022-10-07 08:08] VITALS: BP 144/95; PULSE 95; RESP 16; TEMP 36.8; O2SAT 95; BMI 47.2
[2022-10-07 09:15] VITALS: BP 131/85; PULSE 80; RESP 16; TEMP 36.6; O2SAT 96
--- NOTE | 2022-10-07 09:15 | PM.OP.EC ---
Operative Date/Time/Diagnoses Date of procedure: 10/07/22 Time of procedure: 09:15 Pre-op diagnosis: Nausea, GERD, diarrhea, family history of colon cancer Post-op diagnosis: same Procedure & Clinicians Study performed: EGD with biopsies and colonoscopy with biopsy and hot snare polypectomy Same procedure as scheduled: Yes Indications: Nausea, GERD, diarrhea, family history of colon cancer Surgeon: Brandan Reagan Procedure Notes SCOAP/Timeout: Done Procedure in detail: After the risks and benefits were explained, written and verbal informed consent was obtained. The patient was brought into the procedure room and placed into the left lateral decubitus position. Please see anesthesia notes for sedation details. The scope was introduced into the mouth through the bite block and advanced under direct visualization to the 2nd portion of the duodenum. The scope was slowly withdrawn carefully examining the mucosa for any defects or lesions. Retroflexed views were accomplished in the stomach. The stomach was decompressed, the scope was then removed from the patient who tolerated the procedure well. The patient was then turned around, a digital rectal examination accomplished, the scope was introduced into the rectum and advanced to the cecum as identified by the appendiceal orifice and ileocecal valve. The scope was slowly withdrawn to carefully examine the mucosa for any defects or lesions. Multiple direct views were made through the dentate line for exclusion of pathology. The colon was decompressed the scope was removed from the patient who tolerated the procedure well. Adult colonoscope Bowel prep adequate Scope withdrawal time: 13 minutes Sedation minutes: 34 Complications: none Impression: 1. Duodenum: Normal from the bulb through to the 2nd portion. Random D2 biopsies were taken for exclusion of sprue. 2. Stomach: No ulcers no outlet obstruction no mass lesions. Mild gastropathy was appreciated. No residual food debris. Random antral biopsies were taken for exclusion of H pylori or other pathology. Retroflexed views of the LES were unremarkable. 3. Esophagus: The squamocolumnar junction correlated with the top of the gastric folds. GEJ was at 38 cm from the incisors. No acute erosive changes no strictures no mass lesions. 4. Colon: Patient had a fairly lengthy somewhat redundant colon. Based on this redundancy it was not easy to attempt to navigate the tip of the endoscope up into terminal ileum so this maneuver was not accomplished. The ileocecal valve appeared normal. There was no macroscopic colitis. Considering the patient's chronic diarrhea, random biopsies were taken for exclusion of microscopic colitis. In the descending colon there was an approximately 6 mm sessile polyp removed with hot snare. No additional significant pathology was appreciated throughout. The patient did have grade 3 and grade 4 nonthrombosed nonbleeding hemorrhoids. Endoscopic diagnosis 1. Mild gastropathy 2. Otherwise visually unremarkable EGD 3. Colon polyp 4. Grade 4 hemorrhoids Post-procedure Plan for aftercare: 1. Await histopathology 2. Repeat colonoscopy 5 years. Disposition: PACU
[2022-10-07 09:19] VITALS: BP 127/82; PULSE 79; RESP 18; TEMP 36.6; O2SAT 96
[2022-10-07 09:23] VITALS: BP 128/84; PULSE 74; RESP 16; O2SAT 99
--- NOTE | 2022-10-07 09:39 | SUR.PHASEII ---
DC with volunteer, all belongings with patient.
== END 2022-10-07 09:39 | disposition home or self-care (01) ==
PROVIDERS: PCP Registered Nurse Diabetes Educator; Referring Provider Internal Medicine Gastroenterology; Visit Provider Internal Medicine Gastroenterology
PROC: 0DJD8ZZ Inspection of Lower Intestinal Tract, Via Natural or Artificial Opening Endoscopic (ICD-10-PCS; CPT 45378; principal; 2022-10-07 08:30)
PROC: 0DJ08ZZ Inspection of Upper Intestinal Tract, Via Natural or Artificial Opening Endoscopic (ICD-10-PCS; CPT 43235; 2022-10-07 08:30)
DX: R19.7 Diarrhea, unspecified (principal); Z80.0 Family history of malignant neoplasm of digestive organs; K21.9 Gastro-esophageal reflux disease without esophagitis; K64.3 Fourth degree hemorrhoids; K31.9 Disease of stomach and duodenum, unspecified; K29.50 Unspecified chronic gastritis without bleeding; D12.4 Benign neoplasm of descending colon
CPT/HCPCS: 43239; 45380; 45385; 82962; J2704; J3010

== ENCOUNTER → 2022-10-18 16:01 | Outpatient (CLI) | payer OTHER, SELFPAY ==
[2022-10-18 17:01] LABS: Influenza A - CEPHEID Flu A NEGATIVE (NEGATIVE); Influenza B - CEPHEID Flu B NEGATIVE (NEGATIVE); Respiratory Syncytial Virus Negative (Negative)
[2022-10-18 17:05] LABS: COVID-19 CEPHEID 4-PLEX PCR Negative (Negative)
== END ==
PROVIDERS: PCP Registered Nurse Diabetes Educator; Visit Provider Physician Assistant
DX: J06.9 Acute upper respiratory infection, unspecified (principal)
CPT/HCPCS: 0241U

== ENCOUNTER → 2022-10-18 17:00 | Outpatient (CLI) | payer OTHER, SELFPAY ==
--- NOTE | 2022-10-18 17:02 | DI.RAD.S_ITS ---
PROCEDURE: XR CHEST 2V INDICATIONS: Cough x 1 month TECHNIQUE: 2 views of the chest were acquired. COMPARISON: None. FINDINGS: Surgical changes and devices: None. Lungs and pleura: Lungs are clear. No pleural effusions or pneumothorax. Mediastinum: Mediastinal contours are normal. Heart size is normal. Bones and chest wall: No suspicious bony abnormalities. Soft tissues appear unremarkable. IMPRESSION: No evidence acute pulmonary process. Dictated by: Holland Collazo M.D. on 10/18/2022 at 17:21 Approved by: Holland Collazo M.D. on 10/18/2022 at 17:21
== END ==
PROVIDERS: PCP Registered Nurse Diabetes Educator; Referring Provider Physician Assistant; Visit Provider Physician Assistant
DX: J06.9 Acute upper respiratory infection, unspecified (principal); R05.9 Cough, unspecified
CPT/HCPCS: 0241U; 71046

== ENCOUNTER → 2023-01-16 11:03 | Outpatient (CLI) | payer OTHER, SELFPAY ==
--- NOTE | 2023-01-16 11:04 | DI.RAD.S_ITS ---
PROCEDURE: XR CHEST 2V INDICATIONS: diminished breath sounds right lower lobe TECHNIQUE: 2 views of the chest were acquired. COMPARISON: [facility], CR, XR CHEST 2V, 10/18/2022, 17:02. FINDINGS: Surgical changes and devices: None. Lungs and pleura: Right lower lobe opacity may be pneumonia or atelectasis. No pleural effusions or pneumothorax. Mediastinum: Mediastinal contours are normal. Heart size is normal. Bones and chest wall: No suspicious bony abnormalities. Soft tissues appear unremarkable. IMPRESSION: Right lower lobe pneumonia or atelectasis. Dictated by: Alex Waller M.D. on 01/16/2023 at 13:18 Approved by: Alex aWller M.D. on 01/16/2023 at 13:19
== END ==
PROVIDERS: PCP Registered Nurse Diabetes Educator; Referring Provider Nurse Practitioner Family; Visit Provider Nurse Practitioner Family
DX: R05.9 Cough, unspecified (principal)
CPT/HCPCS: 71046

== ENCOUNTER → 2023-05-07 08:56 | Outpatient (CLI) | payer OTHER, SELFPAY ==
--- NOTE | 2023-05-07 09:00 | DI.US.S_ITS ---
PROCEDURE: US RENAL COMPLETE INDICATIONS: dilated right ureter TECHNIQUE: Real-time scanning was performed of the kidneys and bladder, with image documentation. COMPARISON: [facility], , RENAL COMPLETE, 03/28/2022, 10:01. FINDINGS: Kidneys: Kidneys are normal in size. Right kidney measures 13.8 cm long; left kidney measures 13.2 cm long. Right renal cortical thickness is 1.7 cm; left renal cortical thickness is 1.6 cm. Renal cortical echotexture is normal. No hydronephrosis or nephrolithiasis. No suspicious solid mass lesions. Bladder: The urinary bladder is not filled and not evaluated. Miscellaneous: No free pelvic fluid. No perinephric fluid. The ureters are not visible. IMPRESSION: 1. Normal renal ultrasound. 2. Nonvisualization of either ureter. 3. Unfilled and not evaluated urinary bladder. Dictated by: Danitza Haskins M.D. on 05/07/2023 at 13:50 Approved by: Danitza Haskins M.D. on 05/07/2023 at 14:47
[2023-05-07 11:02] LABS: Hematocrit 38.3 % (36-46); Hemoglobin 13.3 g/dL (12.0-16.0); Mean Corpuscular HGB Conc 34.6 % (30-36); Mean Corpuscular Hemoglobin 27.5 PG (26-34); Mean Corpuscular Volume 79.4 fL (80-100); Platelet Count 341 X10^3/uL (150-400); Red Blood Cell Count 4.82 X10^6/uL (4.0-5.2); Red Cell Distribution Width 13.5 % (11.6-14.8); White Blood Cell Count 10.1 X10^3/uL (4.5-11.0)
[2023-05-07 11:21] LABS: Hemoglobin A1C% w Est Avg Glu 5.9 % (4.0-6.0)
[2023-05-07 11:36] LABS: Alanine Aminotransferase 28 IU/L (<35); Albumin 4.3 g/dL (3.5-5.0); Albumin Globulin Ratio 1.5 (1.0-2.8); Alkaline Phosphatase 85 U/L (38-126); Aspartate Aminotransferase 26 IU/L (14-36); BUN Creatinine Ratio 22.7 (6-22); Bilirubin Total 0.9 mg/dL (0.2-1.3); Blood Urea Nitrogen 17 mg/dL (7-17); Calcium 9.5 mg/dL (8.4-10.2); Carbon Dioxide 27 mmol/L (22-32); Chloride 99 mmol/L (98-107); Cholesterol 122 mg/dL (140-199); Estimated Glomerular Filt Rate > 60 mL/min (>60); Globulin 2.8 g/dL (1.7-4.1); Glucose 122 mg/dL (70-100); HDL Cholesterol 42 mg/dL (40-60); HEMOLYSIS < 15 (0-50); LDL Cholesterol Calculated 41 mg/dL (<100); Potassium 4.2 mmol/L (3.4-5.1); Sodium 136 mmol/L (137-145); Total Protein 7.1 g/dL (6.3-8.2); Triglycerides 197 mg/dL (35-150)
[2023-05-07 11:39] LABS: Creatinine Urine Random 91.5 mg/dL
[2023-05-07 11:44] LABS: Microalbumin Urine Random < 0.6 mg/dL (0-1.6)
[2023-05-07 11:59] LABS: TSH w/ Reflex to FT4 1.97 uIU/mL (0.47-4.68)
== END ==
PROVIDERS: PCP Registered Nurse Diabetes Educator; Referring Provider Urology; Visit Provider Urology
DX: N28.82 Megaloureter (principal); R39.198 Other difficulties with micturition; E11.9 Type 2 diabetes mellitus without complications; E78.5 Hyperlipidemia, unspecified; I10 Essential (primary) hypertension
CPT/HCPCS: 36415; 76770; 80053; 80061; 82043; 82570; 83036; 84443; 85027

== ENCOUNTER 2023-05-08 12:11 | Emergency (ER) | payer OTHER, SELFPAY ==
[2023-05-08] VITALS (13 sets, daily range): BP systolic 94–137; BP diastolic 50–75; PULSE 71–82; RESP 17; TEMP 36.4; O2SAT 92–100; BMI 47.2
--- NOTE | 2023-05-08 12:32 | DI.CT.S_ITS ---
PROCEDURE: CT ABDOMEN PELVIS W CON INDICATIONS: severe midepigastric pain, recent colitis TECHNIQUE: After the administration of intravenous contrast, axial sections acquired from the lung bases to the pubic symphysis. Coronal and sagittal reformats were performed. For radiation dose reduction, the following was used: automated exposure control, adjustment of mA and/or kV according to patient size. COMPARISON: [facility], CT, CT ABDOMEN PELVIS W CON, 03/22/2021, 10:26. FINDINGS: Image quality: Excellent. Lung bases: Unremarkable. Heart: No significant findings. ABDOMEN: Liver: Liver is mildly hypoattenuating, which may indicate mild fatty infiltration. Gallbladder: No radiopaque gallstones. Biliary ducts: Unremarkable. Pancreas: Peripancreatic edema is seen that is suspicious for acute pancreatitis. No well-formed fluid collection is seen. Edema tracks inferiorly along the retroperitoneum. No pancreatic ductal dilatation. No definite nonenhancing pancreatic tissue is seen to suggest necrosis. Edema within the adjacent duodenum is most likely reactive. No acute arterial or venous complication is seen. Spleen: Unremarkable. Adrenal Glands: Unremarkable. Kidneys and Ureters: Unremarkable. Stomach and Bowel: Stomach, small bowel loops, and colon are unremarkable. Normal appendix. Peritoneum: No abnormal intraperitoneal fluid. No free air. Ventral Wall: Small fat containing periumbilical hernia. Abdominal Nodes: No retroperitoneal or mesenteric adenopathy by size criteria. Vessels: Aorta and inferior vena cava are normal in size. PELVIS: Pelvic Organs: Unremarkable. Bladder: Unremarkable. Pelvic Nodes: No enlarged lymph nodes. Miscellaneous: No hernias are seen. Bones: Mild degenerative changes are seen in the included spine. IMPRESSION: 1. Peripancreatic edema is suspicious for acute pancreatitis. No signs of pancreatic necrosis. No well-formed peripancreatic fluid collection. 2. No radiopaque gallstones. Approved by: Imer Lee M.D. on 05/08/2023 at 13:11
[2023-05-08] MEDS: ONDANSETRON 4 MG/2 ML INJ IV (12:34)
[2023-05-08] MEDS: MORPHINE 4 MG/ML INJ IV ×2 (12:35→15:37)
[2023-05-08] MEDS: SODIUM CHLORIDE 0.9% 1,000 ML 1000 ML IV ×2 (12:35→15:38)
--- NOTE | 2023-05-08 12:44 | ED.ABDPAIN ---
HPI - Abdominal Pain General Chief Complaint: Abdominal Pain Stated Complaint: severe abd/sob Time Seen by Provider: 05/08/23 12:18 Source: patient Mode of arrival: Ambulatory History of Present Illness HPI narrative: 57-year-old female with history of diabetes, hyperlipidemia, asthma, morbid obesity presents for midepigastric abdominal pain. Patient was seen at [facility] 3 weeks ago for abdominal pain, she was diagnosed with colitis and discharged with ciprofloxacin and Flagyl. Patient states that she completed her medications and for a time felt improved, however she began to feel pain again yesterday. Pain is burning in nature, generalized over her abdomen but worse over her midepigastric region. Worse after eating. No medications improve pain. No recent medication changes. Denies alcohol use. Related Data Home Medications Medication Instructions Recorded Confirmed cetirizine 10 mg tablet (Zyrtec) 10 mg PO DAILY PRN sneezing 11/26/21 01/21/23 Previous Rx's Medication Instructions Recorded blood sugar diagnostic (Blood #100 ea 11/29/21 Glucose Test strips) blood-glucose meter #1 ea 11/29/21 lancets 33 gauge (BD Ultra Fine #100 ea 11/29/21 Lancets) atorvastatin 40 mg tablet 40 mg PO DAILY #90 tabs 04/11/22 dulaglutide 1.5 mg/0.5 mL 1.5 mg (0.5 mL) SUBCUT QWEEK #6 mL 04/11/22 subcutaneous pen injector ([facility]) lisinopril 2.5 mg tablet 2.5 mg PO DAILY #90 tabs 04/11/22 omeprazole 40 mg capsule,delayed 40 mg PO DAILY GERD #90 caps 04/11/22 release sertraline 50 mg tablet 50 mg PO DAILY #90 tabs 10/08/22 triamcinolone acetonide 0.1 % See Rx Instructions .Route 10/08/22 dental paste .COMPLEX #5 grams albuterol sulfate 90 mcg/actuation 2 puff inhalation Q4-6H PRN 01/16/23 aerosol inhaler shortness of breath or wheezing #8.5 grams pregabalin 100 mg capsule (Lyrica) 100 mg PO TID #270 caps 02/13/23 celecoxib 100 mg capsule (Celebrex) 200 mg PO DAILY #90 caps 04/15/23 hydrocodone 5 mg-acetaminophen 325 1 tab PO Q6H PRN pain #14 tabs 05/08/23 mg tablet ondansetron 4 mg disintegrating 4 mg PO Q8H PRN nausea and 05/08/23 tablet vomiting #30 tabs Allergies Allergy/AdvReac Type Severity Reaction Status Date / Time penicillin G Allergy Severe Hives, Verified 05/08/23 12:21 sores, hard to breath Sulfa (Sulfonamide Allergy Severe Sore, Verified 05/08/23 12:21 Antibiotics) hives, hard to breath metformin AdvReac Intermediate abdominal Verified 05/08/23 12:21 pain/cramps, multiple diarrheas Review of Systems Review of Systems Narrative: CONSTITUTIONAL- Denies: fever, chills, fatigue HEENT- Denies: sore throat, nosebleed, vision changes RESPIRATORY- Denies: shortness of breath, cough, wheezing CARDIAC- Denies: chest pain, edema, orthopnea GI-reports: Abdominal pain, nausea Denies: vomiting, constipation, diarrhea - Denies: frequency, dysuria, hematuria, flank pain MSK- Denies: extremity pain, extremity swelling, joint pain, joint swelling SKIN- Denies: rash, itching, burn, swelling NEUROLOGICAL- Denies: headache, numbness, weakness, dizziness PSYCHIATRIC- Denies: anxiety, depression, suicidal ideation, homicidal ideation Patient History Medical History Abdominal pain Abnormal laboratory test result Altered urinary elimination pattern Arthritis of both knees Carpal tunnel syndrome (~2018) Cervical cancer screening Chicken pox (~1971) Chronic back pain (~2013) Chronic radicular low back pain COVID-19 (04/09/21) Depression Diabetes GERD (gastroesophageal reflux disease) Heavy menstrual period Herpes History of chronic urinary tract infection History of renal calculi Inflammatory bowel syndrome Kidney stones (~2002) Lower back pain Neurological disease Painful menstrual periods Restless leg syndrome (~2011) Right groin pain Right groin pain Right shoulder pain (~2017) Right ureter dilated Rosacea Skin cancer (~2005) Sleep apnea (~2011) Vision changes Surgical History Anesthesia H/O laparoscopy History of section (~1986) History of knee surgery (~2013) History of left oophorectomy (~2008) History of surgery (~2009) History of tonsillectomy (~1974) Family History Daughter Mast cell activation Fibromyalgia PCOS (polycystic ovarian syndrome) Interstitial cystitis Father Neuropathy Mother Breast cancer Hypertension Cancer Brother Diabetes mellitus Inflammatory bowel disease Sister Hypertension Grandmother Cancer Hyperlipidemia Hypertension Stroke Grandfather Cancer Grandmother Mental health problem Social History marital status: number of children: 3 household members: spouse occupational status: other Previous occupational history: retired Smoking Status: Former smoker Tobacco: How many years used: 10 alcohol intake: former caffeine: Yes Smoking Status: Former smoker alcohol intake frequency: holidays/special occasions only Substance Use Type: does not use Exam Initial Vital Signs Initial Vital Signs: Vital Signs Temperature 97.6 F 05/08/23 12:15 Pulse Rate 82 05/08/23 12:15 Respiratory Rate 17 05/08/23 12:15 Blood Pressure 137/75 05/08/23 12:15 Pulse Oximetry 100 05/08/23 12:15 Oxygen Delivery Method Room Air 05/08/23 12:15 Const: Awake, alert, in pain, nontoxic appearing, morbidly obese Eyes: PERRL, EOMI, conjunctiva normal ENT: Atraumatic, dentition normal, mucous membranes moist Cardiac: regular rate, regular rhythm RESP: unlabored, clear bilaterally, no wheezing GI: Atraumatic, soft, midepigastric tenderness to deep palpation without rebound or guarding MSK: Atraumatic, full range of motion, pulses equal Skin: Warm, Dry, intact, no rashes Neuro: AO x3, CN II-XII grossly intact, moves all extremities Psych: affect normal, mood normal, not suicidal, not homicidal Course Course Course Narrative: Uncomfortable but nontoxic appearing patient with abdominal pain. Recently treated for colitis. Vital signs reviewed, we will obtain laboratory work, CT imaging, we will give medications for nausea and pain. Orders Ordered: Discontinued Medications Sodium Chloride (Normal Saline 0.9%) 1,000 mls @ 1,000 mls/hr IV BOLUS ONE Stop: 05/08/23 13:26 Last Infusion: 05/08/23 15:38 Dose: 0 mls/hr Documented By: Admin: 05/08/23 12:35 Dose: 1,000 mls/hr Documented By: YAHIR Sodium Chloride (Normal Saline 0.9%) 1,000 mls @ 1,000 mls/hr IV BOLUS ONE Stop: 05/08/23 16:25 Last Admin: 05/08/23 15:38 Dose: 1,000 mls/hr Documented By: AMV Morphine Sulfate (Morphine 4 Mg/Ml Inj) 4 mg IV NOW ONE Stop: 05/08/23 12:28 Last Admin: 05/08/23 12:35 Dose: 4 mg Documented By: NL Morphine Sulfate (Morphine 4 Mg/Ml Inj) 4 mg IV NOW ONE Stop: 05/08/23 15:27 Last Admin: 05/08/23 15:37 Dose: 4 mg Documented By: AMV Ondansetron HCl (Ondansetron 4 Mg/2 Ml Inj) 4 mg IV NOW PRN PRN Reason: Nausea And Vomiting Last Admin: 05/08/23 12:34 Dose: 4 mg Documented By: YAHIR Reevaluation(s) Reevaluation #1: Laboratory work is significant for elevated lipase. Triglycerides midly elevated. CT shows pancreatic edema concerning for pancreatitis without evidence of necrosis. Patient reassessed, her pain is very well controlled with single dose of IV medications, tolerating po fluids. After thorough medication review as well as consult with Dr. Guzman of gastroenterology, it was determined that pancreatitis likely caused by Trulicity (dulaglutide). Patient was counseled on results of all labs and imaging. I recommended that she cease taking her Trulicity. Recommended contacting her primary care physician for change in diabetic medications. Patient will be discharged home on pain medications with instructions to follow a clear liquid diet for several days with gradual return to normal diet as tolerated. Patient counseled to return to the emergency department if her pain worsens or does not improve. ED return precautions discussed at bedside. Patient expressed understanding of the plan and is in agreement at this time. All questions answered at the time of discharge. Vital Signs Vital signs: Vital Signs - 8 hr 05/08/23 12:15 05/08/23 12:18 05/08/23 12:43 Temperature 97.6 F Pulse Rate 82 80 Respiratory Rate 17 Blood Pressure 137/75 Pulse Oximetry 100 98 98 Oxygen Delivery Method Room Air 05/08/23 12:48 05/08/23 12:48 05/08/23 13:00 Temperature Pulse Rate 74 74 Respiratory Rate Blood Pressure 109/63 Pulse Oximetry 98 96 Oxygen Delivery Method 05/08/23 13:01 05/08/23 13:01 Temperature Pulse Rate 74 Respiratory Rate Blood Pressure 122/69 Pulse Oximetry 97 Oxygen Delivery Method MDM - Abdominal Pain Differential Diagnosis Differential diagnosis: Likely abdominal pain, acute appendicitis and pancreatitis Lab Data 05/08/23 13:10 05/08/23 12:43 Labs: Lab Results 05/08/23 05/08/23 05/08/23 Range/Units 12:43 13:10 14:14 WBC 11.3 H (4.5-11.0) X10^3/uL RBC 4.70 (4.0-5.2) X10^6/uL Hgb 12.7 (12.0-16.0) g/dL Hct 37.4 (36-46) % MCV 79.6 L (80-100) fL MCH 27.1 (26-34) PG MCHC 34.1 (30-36) % RDW 13.8 (11.6-14.8) % Plt Count 320 (150-400) X10^3/uL Neut % (Auto) 66.3 (50-75) % Lymph % (Auto) 24.6 L (25-40) % Cecil % (Auto) 6.8 (3-14) % Eos % (Auto) 1.7 L (2-4) % Baso % (Auto) 0.6 (0-2) % Neut # (Auto) 7500 H (4363-6874) /uL Lymph # (Auto) 2800 (2683-1176) /uL Cecil # (Auto) 800 (0-900) /uL Eos # (Auto) 200 (0-450) /uL Baso # (Auto) 100 (0-100) /uL Sodium 138 (137-145) mmol/L Potassium 3.9 (3.4-5.1) mmol/L Chloride 102 (98-107) mmol/L Carbon Dioxide 26 (22-32) mmol/L BUN 13 (7-17) mg/dL Creatinine 0.58 (0.52-1.04) mg/dL Estimated GFR > 60 (>60) mL/min BUN/Creatinine Ratio 22.4 H (6-22) Glucose 163 H (70-100) mg/dL Calcium 9.2 (8.4-10.2) mg/dL Total Bilirubin 0.8 (0.2-1.3) mg/dL AST 27 (14-36) IU/L ALT 25 (<35) IU/L Alkaline Phosphatase 82 (38-126) U/L Total Protein 7.1 (6.3-8.2) g/dL Albumin 4.1 (3.5-5.0) g/dL Globulin 3.0 (1.7-4.1) g/dL Albumin/Globulin Ratio 1.4 (1.0-2.8) Triglycerides 187 H (35-150) mg/dL Lipase 2432 H (23-300) U/L Discharge Plan Departure Patient Disposition: Home Clinical Impression: Acute pancreatitis, Diabetes, Elevated cholesterol with high triglycerides, Morbid obesity Instructions: Clear Liquid Diet, DI for Pancreatitis Activity Restrictions/Additional Instructions: TODAY YOU WERE SEEN FOR ABDOMINAL PAIN, YOUR LABS AND CT SCAN INDICATE THAT YOU HAVE ACUTE PANCREATITIS. THIS COULD POSSIBLY BE CAUSED BY YOUR TRULICITY. I HIGHLY RECOMMEND THAT YOU STOP USING TRULICITY UNLESS OTHERWISE INSTRUCTED TO BY HER PRIMARY CARE PHYSICIAN. FOLLOW A CLEAR LIQUID DIET FOR SEVERAL DAYS AND THEN GRADUALLY START TO RETURN TO NORMAL DIET. THE PAIN MEDICATIONS PROVIDED MAY CAUSE CONSTIPATION, BE SURE TO TAKE A DAILY STOOL SOFTENER. Prescriptions: New hydrocodone-acetaminophen 5-325 mg tablet 1 tab PO Q6H PRN (Reason: pain) Qty: 14 0RF ondansetron 4 mg tablet,disintegrating 4 mg PO Q8H PRN (Reason: nausea and vomiting) Qty: 30 0RF No Action pregabalin [Lyrica] 100 mg capsule 100 mg PO TID Qty: 270 0RF celecoxib [Celebrex] 100 mg capsule 200 mg PO DAILY Qty: 90 0RF atorvastatin 40 mg tablet 40 mg PO DAILY Qty: 90 3RF Trulicity 1.5 mg/0.5 mL pen injector 1.5 mg SUBCUT QWEEK Qty: 6 3RF lisinopril 2.5 mg tablet 2.5 mg PO DAILY Qty: 90 3RF omeprazole 40 mg capsule,delayed release(DR/EC) 40 mg PO DAILY Qty: 90 3RF albuterol sulfate 90 mcg/actuation HFA aerosol inhaler 2 puff inhalation Q4-6H PRN (Reason: shortness of breath or wheezing) Qty: 8.5 0RF cetirizine [Zyrtec] 10 mg tablet 10 mg PO DAILY PRN (Reason: sneezing) (DME) blood-glucose meter Kit See Rx Instructions miscellaneous .MEDSUPPLY Qty: 1 0RF Rx Instructions: Check BG once daily (DME) Blood Glucose Test Strip See Rx Instructions .MEDSUPPLY Qty: 100 3RF Rx Instructions: check BG once daily (DME) lancets [BD Ultra Fine Lancets] 33 gauge misc See Rx Instructions .MEDSUPPLY Qty: 100 3RF Rx Instructions: check BG 1x daily triamcinolone acetonide 0.1 % paste See Rx Instructions .ROUTE .COMPLEX Qty: 5 1RF Rx Instructions: Apply a small amount to lesion 2-4 times daily until healed; do not rinse afterwards, avoid eating or drinking for 30 min. sertraline 50 mg tablet 50 mg PO DAILY Qty: 90 1RF Referrals: Krishna Mark ARNP [Primary Care Provider] - Stand Alone Forms: Patient Portal/API
[2023-05-08 13:05] LABS: Alanine Aminotransferase 25 IU/L (<35); Albumin 4.1 g/dL (3.5-5.0); Albumin Globulin Ratio 1.4 (1.0-2.8); Alkaline Phosphatase 82 U/L (38-126); Aspartate Aminotransferase 27 IU/L (14-36); BUN Creatinine Ratio 22.4 (6-22); Bilirubin Total 0.8 mg/dL (0.2-1.3); Blood Urea Nitrogen 13 mg/dL (7-17); Calcium 9.2 mg/dL (8.4-10.2); Carbon Dioxide 26 mmol/L (22-32); Chloride 102 mmol/L (98-107); Estimated Glomerular Filt Rate > 60 mL/min (>60); Glucose 163 mg/dL (70-100); Potassium 3.9 mmol/L (3.4-5.1); Sodium 138 mmol/L (137-145); Total Protein 7.1 g/dL (6.3-8.2)
[2023-05-08 13:11] LABS: HEMOLYSIS 31 (0-50)
[2023-05-08 13:22] LABS: Lipase 2432 U/L (23-300)
[2023-05-08 13:29] LABS: Add Manual Diff / Slide Review NO; Basophils Absolute Auto 100 /uL (0-100); Basophils Percent Auto 0.6 % (0-2); Eosinophils Absolute Auto 200 /uL (0-450); Eosinophils Percent Auto 1.7 % (2-4); Hematocrit 37.4 % (36-46); Hemoglobin 12.7 g/dL (12.0-16.0); Lymphocytes Absolute Auto 2800 /uL (1100-4500); Lymphocytes Percent Auto 24.6 % (25-40); Mean Corpuscular HGB Conc 34.1 % (30-36); Mean Corpuscular Hemoglobin 27.1 PG (26-34); Mean Corpuscular Volume 79.6 fL (80-100); Monocytes Absolute Auto 800 /uL (0-900); Monocytes Percent Auto 6.8 % (3-14); Neutrophils Absolute Auto 7500 /uL (1500-7000); Neutrophils Percent Auto 66.3 % (50-75); Platelet Count 320 X10^3/uL (150-400); Red Cell Distribution Width 13.8 % (11.6-14.8); White Blood Cell Count 11.3 X10^3/uL (4.5-11.0)
[2023-05-08 14:26] LABS: Triglycerides 187 mg/dL (35-150)
== END 2023-05-08 16:20 | disposition home or self-care (01) ==
PROVIDERS: Emergency Provider Emergency Medicine; PCP Registered Nurse Diabetes Educator
DX: K85.90 Acute pancreatitis without necrosis or infection, unspecified (principal); E78.2 Mixed hyperlipidemia; E11.9 Type 2 diabetes mellitus without complications; E66.01 Morbid (severe) obesity due to excess calories
CPT/HCPCS: 36415; 74177; 80053; 83690; 84478; 85025; 93005; 96361; 96374; 96375; 96376; 99284; J2270; J2405; Q9967

== ENCOUNTER → 2023-05-26 11:39 | Outpatient (CLI) | payer OTHER, SELFPAY ==
[2023-05-26 13:01] LABS: Lipase 226 U/L (23-300)
== END ==
PROVIDERS: PCP Registered Nurse Diabetes Educator; Referring Provider Registered Nurse Diabetes Educator; Visit Provider Registered Nurse Diabetes Educator
DX: K85.90 Acute pancreatitis without necrosis or infection, unspecified (principal)
CPT/HCPCS: 36415; 83690

== ENCOUNTER → 2023-06-06 14:22 | Outpatient (CLI) | payer OTHER, SELFPAY ==
--- NOTE | 2023-06-06 | DI.MG.S_ITS ---
BILATERAL DIGITAL SCREENING MAMMOGRAM 3D/2D WITH CAD: 06/06/2023 CLINICAL: Routine screening. Family history of breast cancer. Comparison is made to exams dated: 05/23/2022 mammogram, 05/07/2021 mammogram - [facility], and 05/14/2019 mammogram - outside facility. There are scattered areas of fibroglandular density in both breasts (category b / 25%-50% glandular tissue). Current study was also evaluated with a Computer Aided Detection (CAD) system. No significant masses, calcifications, or other findings are seen in either breast. IMPRESSION: NEGATIVE There is no mammographic evidence of malignancy. A 1 year screening mammogram is recommended. Based on the Tyrer Cuzick model (a risk assessment model) the patient's lifetime risk is 6.4% and her 10 year risk is 2.1%. According to the ACR, ACS, and NCCN guidelines, an annual breast MRI exam along with mammogram is recommended if the patient's lifetime risk is 20% or greater. This exam was interpreted at Station ID: [id number]. NOTE: For mammograms, a report in lay terms will be sent to the patient. Approximately 15% of breast malignancies will not be visualized mammographically. In the management of a palpable breast mass, a negative mammogram must not discourage biopsy of a clinically suspicious lesion. Electronically Signed By: Alisson Daniel M.D., PH.D ernie/kathrin:06/08/2023 21:13:10 letter sent: Normal Exam ACR BI-RADS Category 1: Negative [id number]
== END ==
PROVIDERS: PCP Registered Nurse Diabetes Educator; Referring Provider Registered Nurse Diabetes Educator; Visit Provider Registered Nurse Diabetes Educator
DX: Z12.31 Encounter for screening mammogram for malignant neoplasm of breast (principal); Z80.3 Family history of malignant neoplasm of breast
CPT/HCPCS: 77063; 77067

== ENCOUNTER → 2023-06-21 10:16 | Outpatient (CLI) | payer OTHER, SELFPAY ==
--- NOTE | 2023-06-21 10:19 | DI.CT.S_ITS ---
PROCEDURE: CT ABDOMEN W CON INDICATIONS: reeval pancreatitis TECHNIQUE: After the administration of intravenous contrast, axial sections were acquired from the lung bases to the pubic symphysis. Coronal and sagittal reformats were performed. For radiation dose reduction, the following was used: automated exposure control, adjustment of mA and/or kV according to patient size. COMPARISON:[facility], CT, CT ABDOMEN PELVIS W CON, 05/08/2023, 12:55. FINDINGS: Lower thorax: The lung bases are clear. Heart size normal. No hiatal hernia. Liver: The liver is diffusely decreased in attenuation without focal mass lesion. Biliary system: No calcified cholelithiasis or pericholecystic inflammation. No intra or extrahepatic bile duct dilatation. Pancreas: Unremarkable without mass or inflammation evident. Spleen: Normal in size and density. Adrenals: Normal morphology and density. Urinary system: Normal renal size and attenuation. No renal calculi, hydronephrosis, or solid mass present. Gastrointestinal system: The bowel is unremarkable without evidence of bowel obstruction or inflammation. The stomach appears unremarkable. Peritoneal spaces: No mesenteric or retroperitoneal adenopathy. No free air. No free fluid. Vasculature: The IVC, aorta vasculature are unremarkable. Abdominal wall: Abdominal wall intact without evidence of ventral or inguinal hernias. Musculoskeletal: Normal bone mineralization. No acute fractures. IMPRESSION: 1. Normal appearing pancreas. Prior pancreatitis has resolved without sequela by CT 2. Hepatic fatty infiltration Approved by: Donn Forde M.D. on 06/21/2023 at 12:09
[2023-06-21 11:01] LABS: BUN Creatinine Ratio 24.2 (6-22); Blood Urea Nitrogen 16 mg/dL (7-17); Estimated Glomerular Filt Rate > 60 mL/min (>60)
== END ==
PROVIDERS: PCP Registered Nurse Diabetes Educator; Referring Provider Registered Nurse Diabetes Educator; Visit Provider Registered Nurse Diabetes Educator
DX: K85.80 Other acute pancreatitis without necrosis or infection (principal); K76.0 Fatty (change of) liver, not elsewhere classified
CPT/HCPCS: 36415; 74160; 82565; 84520; Q9967

== ENCOUNTER → 2023-10-08 13:43 | Outpatient (CLI) | payer OTHER, SELFPAY | LOC: LAB 13:44 | PROVIDERS: PCP Registered Nurse Diabetes Educator; Referring Provider Registered Nurse Diabetes Educator; Visit Provider Registered Nurse Diabetes Educator | DX: E11.9 Type 2 diabetes mellitus without complications (principal) | CPT/HCPCS: 36415; 83036 ==

== ENCOUNTER → 2023-10-14 10:57 | Outpatient (CLI) | payer OTHER, SELFPAY ==
--- NOTE | 2023-10-14 10:59 | DI.RAD.S_ITS ---
PROCEDURE: XR KNEE RT 3V INDICATIONS: reeval chronic knee pain TECHNIQUE: 3 views of the knee were acquired. COMPARISON: [facility], , XR KNEE RT 3V, 01/11/2021, 12:03. FINDINGS: Bones: No fractures or dislocations. No suspicious bony lesions. Moderate medial compartment joint space narrowing with medial lateral marginal osteophyte Soft tissues: No joint effusion. No suspicious soft tissue calcifications. IMPRESSION: Arthritic changes most prominent medially Approved by: Donn Forde M.D. on 10/14/2023 at 21:15
--- NOTE | 2023-10-14 10:59 | DI.RAD.S_ITS ---
PROCEDURE: XR CHEST 2V INDICATIONS: eval DILLARD, CP TECHNIQUE: 2 views of the chest were acquired. COMPARISON: [facility], CR, XR CHEST 2V, 01/16/2023, 11:08. FINDINGS: Surgical changes and devices: None. Lungs and pleura: Lungs are clear. No pleural effusions or pneumothorax. Mediastinum: Mediastinal contours are normal. Heart size is normal. Bones and chest wall: No suspicious bony abnormalities. Soft tissues appear unremarkable. IMPRESSION: No acute cardiopulmonary abnormality is seen. Approved by: Donn Forde M.D. on 10/14/2023 at 21:14
== END ==
LOC: RAD 10:58
PROVIDERS: PCP Registered Nurse Diabetes Educator; Referring Provider Registered Nurse Diabetes Educator; Visit Provider Registered Nurse Diabetes Educator
DX: R06.09 Other forms of dyspnea (principal); R07.9 Chest pain, unspecified; M25.561 Pain in right knee; G89.29 Other chronic pain
CPT/HCPCS: 71046; 73562

== ENCOUNTER → 2023-11-06 15:16 | Outpatient (CLI) | payer OTHER, SELFPAY ==
--- NOTE | 2023-11-06 | DI.MRI.S_ITS ---
PROCEDURE: MR LUMBAR SPINE WO CON INDICATIONS: Spinal stenosis, lumbar region with neurogenic claudication TECHNIQUE: Noncontrast sagittal T1 spin echo and T2 fast echo, sagittal STIR, and T2 fast spin echo through the lumbar spine. In cases with scoliosis, additional coronal T2 fast spin echo may be performed. COMPARISON: [facility], MR, MR LUMBAR SPINE WO CON, 03/28/2022, 10:27. FINDINGS: Image quality: Excellent. Alignment and Curvature: There is normal bony alignment. Bone Marrow: Marrow is of normal overall signal. No acute vertebral body compression fractures. Spinal Cord: Conus medullaris terminates at the L1 level. Visualized cord demonstrates normal signal and size. Paraspinous Soft Tissues: No paravertebral masses. T12-L1: Normal appearance. L1-L2: Normal appearance. L2-L3: Mild facet arthropathy. No central canal or neural foraminal stenosis. L3-L4: Mild facet arthropathy. No central canal or neural foraminal stenosis. L4-L5: Facet arthropathy. Mild disc bulge. Borderline central canal stenosis is stable. No significant neural foraminal stenosis. L5-S1: Disc desiccation. Minimal diffuse disc bulge and minimal central disc protrusion. No significant central canal stenosis. [id number] bilateral neural foraminal stenosis is stable. IMPRESSION: Mild degenerative changes of the lumbar spine as described above are stable in appearance compared to prior. Dictated by: Santana Carlisle M.D. on 11/06/2023 at 16:48 Approved by: Santana Carlisle M.D. on 11/06/2023 at 16:50
== END ==
PROVIDERS: PCP Registered Nurse Diabetes Educator; Referring Provider Physical Medicine & Rehabilitation Pain Medicine; Visit Provider Physical Medicine & Rehabilitation Pain Medicine
DX: M48.062 Spinal stenosis, lumbar region with neurogenic claudication (principal); M47.816 Spondylosis without myelopathy or radiculopathy, lumbar region
CPT/HCPCS: 72148

== ENCOUNTER → 2023-12-19 08:08 | Outpatient (CLI) | payer OTHER, SELFPAY ==
--- NOTE | 2023-12-19 08:09 | DI.ECHO.S_ITS ---
[facility] : : [id number] [place] : : [id number] : : Phone: [phone] Echocardiogram Report + + :Name: GIRMA TOM Study Date: 12/19/2023 Height: 65 in : :[facility] ReadingLocation: Weight: 287 lb: : Gender: Female BSA: 2.3 m2 : :: 1965 Age: 58 yrs : :Reason For Study: DYSPNEA ON EXERTION : :Ordering Physician: TRINH, : :LAXMI Performed By: Kenyon Gotti : :Referring: LAXMI TSANG : + + Interpretation Summary 1) Normal left ventricular thickness, size, wall motion, and systolic function (EF 55-60%). 2) Normal right ventricular size and function. 3) No significant valvular abnormalities. 4) The right ventricular systolic pressure is estimated to be at least 37.8 mmHg based on an estimated right atrial pressure of 8 mm Hg. 5) No prior Echo available for comparison. Procedure: A two-dimensional transthoracic echocardiogram with color flow and Doppler was performed. The study quality was technically adequate. There is no prior echocardiogram noted for this patient. The patient was in normal sinus rhythm during the exam. The heart rate ranged between 61-69 bpm during the study. Left Ventricle: The left ventricle is normal in size and wall thickness. The ejection fraction is estimated to be 55-60%. Left ventricular systolic function appears normal without focal wall motion abnormalities. Diastolic parameters suggest a relaxation abnormality of the left ventricle, consistent with probable normal filling pressures. Right Ventricle: The right ventricle is normal in size and function. Atria: The left atrial size is normal. Right atrial size is normal. The interatrial septum grossly appears intact with no obvious evidence for an atrial septal defect. Mitral Valve: The mitral valve is normal in structure and function. There is no mitral valve stenosis. There is trace mitral regurgitation. Aortic Valve: The aortic valve is trileaflet. There is no aortic valve stenosis. No aortic regurgitation is present. Tricuspid Valve: The tricuspid valve is normal in structure and function. There is no tricuspid stenosis. There is mild tricuspid regurgitation. The right ventricular systolic pressure is estimated to be at least 37.8 mmHg based on an estimated right atrial pressure of 8 mm Hg. Pulmonic Valve: The pulmonic valve is not well visualized. There is no pulmonic valvular stenosis. There is no pulmonic valvular regurgitation. Great Vessels: The aortic root is normal size. The dimensions of the ascending aorta are normal. The IVC is dilated (diameter is greater than 2.1 cm) yet it collapses greater than 50% with a sniff. This suggests a right atrial pressure of 8 mm Hg. Pericardium/ Pleura There is no pericardial effusion. There is no pleural effusion. MMode/2D Measurements & Calculations LVIDd: 4.9 cm LVOT diam: 2.0 cm LVIDs: 3.6 cm Ao root diam: 3.0 cm FS: 26.8 % asc Aorta Diam: 3.2 cm IVSd: 0.85 cm Ao Arch Diam (Prox Trans): 2.6 cm LVPWd: 0.88 cm LV grmim. diameter/BSA (cm/m^2): 2.1 LV sys. diameter/BSA (cm/m^2): 1.6 LA A2 area: 21.3 cm2 RA long axis: 5.0 cm LA A4 area: 23.8 cm2 RA area: 13.0 cm2 RA vol: 28.7 ml RA : 12.5 ml/m2 IVC diam: 2.3 cm RVD1 (basal): 3.1 cm RVD2 (mid): 2.4 cm TAPSE: 2.9 cm Doppler Measurements & Calculations Ao V2 max: 192.4 cm/sec LVOT Max Rasheed: 134.3 cm/sec Ao V2 mean: 131.3 cm/sec LV V1 max P.2 mmHg Ao max P.8 mmHg LV V1 VTI: 32.7 cm Ao mean P.6 mmHg CLIVE(I,D): 2.2 cm2 Ao V2 VTI: 45.5 cm CLIVE(V,D): 2.1 cm2 sev ratio: 0.72 CLIVE indexed to BSA (cm^2/m^2): 0.96 MV E max rasheed: 105.4 cm/sec TR max rasheed: 272.8 cm/sec MV A max rasheed: 106.1 cm/sec TR max P.8 mmHg MV E/A: 0.99 PA V2 max: 138.4 cm/sec Med Peak E' Rasheed: 7.4 cm/sec PA V2 mean: 93.5 cm/sec E/E' med: 14.3 PA mean P.9 mmHg Lat Peak E' Rasheed: 9.8 cm/sec PA pr(Accel): 46.5 mmHg E/E' lat: 10.7 E/e' average: 12.5 MV dec time: 0.26 sec SV(LVOT): 100.6 ml Reading Physician:11:36 AM
--- NOTE | 2023-12-19 08:09 | DI.NM.S_ITS ---
PROCEDURE: NM BUSTER PERF SPECT R&S PHARM Rest and pharmacological stress myocardial perfusion SPECT with gated imaging and ejection fraction RADIOPHARMACEUTICAL: 25.0 mCi Tc-99m tetrafosmin IV at rest and 25.7 mCi Tc-99m tetrafosmin IV at peak effect of pharmacological stress. Kro-dzi-omiltrcc was performed. INDICATIONS: Dyspnea on exertion and chest pain TECHNIQUE: Radiopharmaceutical was injected at peak stress test, and also at rest. SPECT images were obtained. SPECT myocardial perfusion images were displayed in short axis, horizontal long axis, and vertical long axis views. Gated images were reviewed using [employer] software. COMPARISON: None. CARDIAC STRESS: A pharmacologic stress test was performed under the supervision of an attending staff, using an infusion of regadenoson 0.4 mg IV. Hemodynamic data: There is normal blood pressure and heart rate response to pharmacologic stress. Symptoms: The patient denied anginal chest pain. EKG: No diagnostic changes of ischemia; no ectopy. FINDINGS: Raw data: There is good myocardial uptake of radiotracer. There are significant patient motion artifacts. There is also note of significant gut uptake of the tracer. Qzwx-xl-djkzf ratio is 0.18 (normal is less than 0.38 for tetrafosmin tracer). Left ventricle function: Gated images demonstrate normal left ventricular wall thickening. No segmental wall motion abnormalities. No transient ischemic dilation; TID is 1.03 (normal less than 1.3). Left ventricle resting end diastolic volume is 115 mL. Left ventricle stress ejection fraction is 71%; normal range is above 45%. Myocardial perfusion: There is normal distribution of activity in the right and left ventricular myocardium. No fixed or reversible perfusion defects. IMPRESSION: Low risk study. No evidence of pharmacologic induced ischemia or scar. Normal LV size and function. Dictated by: Pau Lamas D.O. on 12/22/2023 at 16:22 Approved by: Pua Lamas D.O. on 12/22/2023 at 16:24
== END ==
PROVIDERS: PCP Registered Nurse Diabetes Educator; Referring Provider Registered Nurse Diabetes Educator; Visit Provider Registered Nurse Diabetes Educator
DX: R07.9 Chest pain, unspecified (principal); I07.1 Rheumatic tricuspid insufficiency; R06.09 Other forms of dyspnea
CPT/HCPCS: 78452; 93017; 93306; A9502; J2785

== ENCOUNTER → 2024-01-12 14:52 | Outpatient (CLI) | payer OTHER, SELFPAY ==
[2024-01-12 16:08] LABS: Hemoglobin A1C% w Est Avg Glu 6.9 % (4.0-6.0)
== END ==
PROVIDERS: PCP Registered Nurse Diabetes Educator; Referring Provider Registered Nurse Diabetes Educator; Visit Provider Registered Nurse Diabetes Educator
DX: E11.9 Type 2 diabetes mellitus without complications (principal)
CPT/HCPCS: 36415; 83036

== ENCOUNTER → 2024-03-01 12:19 | Outpatient (CLI) | payer OTHER, SELFPAY ==
--- NOTE | 2024-03-01 12:20 | DI.RAD.S_ITS ---
PROCEDURE: XR SHOULDER RT MIN 2V INDICATIONS: shoulder pain TECHNIQUE: 2 views of the shoulder were acquired. COMPARISON: [facility], CR, XR SHOULDER RT MIN 2V, 01/11/2021, 12:03. FINDINGS: Bones: No fractures or dislocations. No suspicious bony lesions. Visualized ribs appear intact. Minimal appearance acromioclavicular and glenohumeral arthritic narrowing relatively stable. Very minimal periarticular osteophytes. No erosions. Soft tissues: No suspicious soft tissue calcifications. 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 Dictated by: Aaliyah Mercer M.D. on 03/01/2024 at 22:44 Approved by: Aaliyah Mercer M.D. on 03/01/2024 at 22:44
--- NOTE | 2024-03-01 12:20 | DI.RAD.S_ITS ---
PROCEDURE: XR KNEE LT 3V INDICATIONS: Knee pain TECHNIQUE: 3 views of the knee were acquired. COMPARISON: [facility], CR, XR KNEE RT 3V, 10/14/2023, 11:11. FINDINGS: Bones: No fractures or dislocations. No suspicious bony lesions. Moderate to severe medial and patellofemoral as well as mild lateral compartment narrowing. Periarticular osteophytes are present. No erosions. Soft tissues: Mild joint effusion. No suspicious soft tissue calcifications. IMPRESSION: Mild effusion with tricompartmental arthritic change most severe medially. Dictated by: Aaliyah Mercer M.D. on 03/01/2024 at 22:45 Approved by: Aaliyah Mercer M.D. on 03/01/2024 at 22:45
== END ==
PROVIDERS: PCP Registered Nurse Diabetes Educator; Referring Provider Anesthesiology; Visit Provider Anesthesiology
DX: M25.511 Pain in right shoulder (principal); M25.562 Pain in left knee; M25.462 Effusion, left knee
CPT/HCPCS: 73030; 73562

== ENCOUNTER → 2024-05-18 13:57 | Outpatient (CLI) | payer OTHER, SELFPAY ==
[2024-05-18 14:23] LABS: Hematocrit 42.8 % (36-46); Hemoglobin 14.3 g/dL (12.0-16.0); Mean Corpuscular HGB Conc 33.4 % (30-36); Platelet Count 270 X10^3/uL (150-400); Red Blood Cell Count 5.29 X10^6/uL (4.0-5.2); Red Cell Distribution Width 14.3 % (11.6-14.8); White Blood Cell Count 11.2 X10^3/uL (4.5-11.0)
[2024-05-18 14:43] LABS: Alanine Aminotransferase 30 IU/L (<35); Albumin 4.3 g/dL (3.5-5.0); Albumin Globulin Ratio 1.5 (1.0-2.8); Alkaline Phosphatase 93 U/L (38-126); Aspartate Aminotransferase 36 IU/L (14-36); BUN Creatinine Ratio 17.8 (6-22); Bilirubin Total 0.8 mg/dL (0.2-1.3); Blood Urea Nitrogen 16 mg/dL (7-17); Calcium 9.3 mg/dL (8.4-10.2); Carbon Dioxide 30 mmol/L (22-32); Chloride 104 mmol/L (98-107); Cholesterol 134 mg/dL (140-199); Estimated Glomerular Filt Rate > 60 mL/min (>60); Globulin 2.9 g/dL (1.7-4.1); Glucose 114 mg/dL (70-100); HDL Cholesterol 38 mg/dL (40-60); HEMOLYSIS < 15 (0-50); LDL Cholesterol Calculated 55 mg/dL (<100); Potassium 4.4 mmol/L (3.4-5.1); Sodium 140 mmol/L (137-145); Total Protein 7.2 g/dL (6.3-8.2); Triglycerides 205 mg/dL (35-150)
[2024-05-18 15:14] LABS: TSH w/ Reflex to FT4 2.03 uIU/mL (0.47-4.68)
[2024-05-18 16:21] LABS: Creatinine Urine Random 92.37 mg/dL
[2024-05-18 19:05] LABS: Microalbumin Urine Random < 0.6 mg/dL (0-1.6)
[2024-05-18 22:01] LABS: Hemoglobin A1C% w Est Avg Glu 6.3 % (4.0-6.0)
== END ==
LOC: LAB 13:57
PROVIDERS: PCP Registered Nurse Diabetes Educator; Referring Provider Registered Nurse Diabetes Educator; Visit Provider Registered Nurse Diabetes Educator
DX: E11.9 Type 2 diabetes mellitus without complications (principal); I10 Essential (primary) hypertension; E78.5 Hyperlipidemia, unspecified
CPT/HCPCS: 36415; 80053; 80061; 82043; 82570; 83036; 84443; 85027

== ENCOUNTER → 2024-07-13 14:23 | Outpatient (CLI) | payer OTHER, SELFPAY ==
--- NOTE | 2024-07-13 14:24 | DI.MG.S_ITS ---
BILATERAL DIGITAL SCREENING MAMMOGRAM 3D/2D WITH CAD: 07/13/2024 CLINICAL: Routine screening. Family history of breast cancer. Comparison is made to exams dated: 06/06/2023 mammogram, 05/23/2022 mammogram, and 05/07/2021 mammogram - [facility]. There are scattered areas of fibroglandular density (category b / 25%-50% glandular tissue). Current study was also evaluated with a Computer Aided Detection (CAD) system. No significant masses, calcifications, or other findings are seen in either breast. There has been no significant interval change. IMPRESSION: NEGATIVE There is no mammographic evidence of malignancy. A 1 year screening mammogram is recommended. Based on the Tyrer Cuzick model (a risk assessment model) the patient's lifetime risk is 6.2% and her 10 year risk is 2.3%. According to the ACR, ACS, and NCCN guidelines, an annual breast MRI exam along with mammogram is recommended if the patient's lifetime risk is 20% or greater. This exam was interpreted at Station ID: [id number]. NOTE: For mammograms, a report in lay terms will be sent to the patient. Approximately 15% of breast malignancies will not be visualized mammographically. In the management of a palpable breast mass, a negative mammogram must not discourage biopsy of a clinically suspicious lesion. Electronically Signed By: Tejas [email or web address]/[email or web address]:07/13/2024 16:27:57 letter sent: Normal Exam ACR BI-RADS Category 1: Negative
== END ==
PROVIDERS: PCP Registered Nurse Diabetes Educator; Referring Provider Registered Nurse Diabetes Educator; Visit Provider Registered Nurse Diabetes Educator
DX: Z12.31 Encounter for screening mammogram for malignant neoplasm of breast (principal); Z80.3 Family history of malignant neoplasm of breast
CPT/HCPCS: 77063; 77067

== ENCOUNTER → 2024-11-04 16:58 | Outpatient (CLI) | payer OTHER, SELFPAY ==
[2024-11-04 18:04] LABS: Add Manual Diff / Slide Review NO; Basophils Absolute Auto 100 /uL (0-100); Basophils Percent Auto 0.6 % (0-2); Eosinophils Absolute Auto 400 /uL (0-450); Eosinophils Percent Auto 3.6 % (2-4); Hematocrit 45.3 % (36-46); Lymphocytes Absolute Auto 5200 /uL (1100-4500); Lymphocytes Percent Auto 42.8 % (25-40); Mean Corpuscular HGB Conc 33.2 % (30-36); Mean Corpuscular Hemoglobin 27.4 PG (26-34); Mean Corpuscular Volume 82.5 fL (80-100); Monocytes Absolute Auto 1100 /uL (0-900); Monocytes Percent Auto 8.9 % (3-14); Neutrophils Absolute Auto 5300 /uL (1500-7000); Neutrophils Percent Auto 44.1 % (50-75); Platelet Count 297 X10^3/uL (150-400); Red Blood Cell Count 5.49 X10^6/uL (4.0-5.2); Red Cell Distribution Width 13.7 % (11.6-14.8)
[2024-11-04 18:24] LABS: Alanine Aminotransferase 32 IU/L (<35); Albumin 4.3 g/dL (3.5-5.0); Albumin Globulin Ratio 1.5 (1.0-2.8); Alkaline Phosphatase 98 U/L (38-126); Amylase 50 U/L (30-110); Aspartate Aminotransferase 36 IU/L (14-36); BUN Creatinine Ratio 15.6 (6-22); Bilirubin Total 0.8 mg/dL (0.2-1.3); Blood Urea Nitrogen 15 mg/dL (7-17); Calcium 9.5 mg/dL (8.4-10.2); Carbon Dioxide 27 mmol/L (22-32); Chloride 103 mmol/L (98-107); Estimated Glomerular Filt Rate > 60 mL/min (>60); Globulin 2.8 g/dL (1.7-4.1); Glucose 92 mg/dL (70-100); HEMOLYSIS < 15 (0-50); Lipase 145 U/L (23-300); Potassium 4.5 mmol/L (3.4-5.1); Sodium 140 mmol/L (137-145); Total Protein 7.1 g/dL (6.3-8.2)
== END ==
PROVIDERS: Physician Assistant; PCP Registered Nurse Diabetes Educator; Referring Provider Registered Nurse Diabetes Educator; Visit Provider Registered Nurse Diabetes Educator
DX: R10.9 Unspecified abdominal pain (principal); Z87.19 Personal history of other diseases of the digestive system
CPT/HCPCS: 36415; 80053; 82150; 83690; 85025

== ENCOUNTER → 2024-12-01 15:02 | Outpatient (CLI) | payer OTHER, SELFPAY ==
[2024-12-01 16:19] LABS: Hemoglobin A1C% w Est Avg Glu 6.1 % (4.0-6.0)
== END ==
PROVIDERS: PCP Registered Nurse Diabetes Educator; Referring Provider Registered Nurse Diabetes Educator; Visit Provider Registered Nurse Diabetes Educator
DX: E11.9 Type 2 diabetes mellitus without complications (principal)
CPT/HCPCS: 36415; 83036

== ENCOUNTER → 2025-06-07 18:36 | Outpatient (CLI) | payer OTHER, SELFPAY ==
--- NOTE | 2025-06-07 | DI.MRI.S_ITS ---
PROCEDURE: MR KNEE LT WO CON INDICATIONS: LEFT KNEE PAIN TECHNIQUE: Noncontrast sagittal PD fast spin echo and T2 fast spin echo with fat saturation, sagittal 3-D FLASH with fat saturation; coronal T1 spin echo and PD fast spin echo with fat saturation, and axial PD fast spin echo with fat saturation through the knee. COMPARISON: None. FINDINGS: Image quality: Excellent. Menisci: Peripheral displacement of medial meniscus bowing medial collateral ligament is seen. Subtle oblique tear involving posterior horn of medial meniscus is seen extending to inferior articulating surface. There is also horizontal oblique tear involving anterior horn of lateral meniscus extending to both superior and inferior articulating surfaces. Cruciate ligaments: The anterior and posterior cruciate ligaments appear intact. Medial structures: The medial collateral ligament appears thickened with mild surrounding edema. Visualized portions of the pes anserinus tendons appear normal. No abnormal bursal fluid. Lateral structures: The lateral collateral ligament, long and short heads of the biceps femoris tendon appear intact. The popliteus tendon appears intact. Up Iliotibial band appears normal. Anterior structures: Distal quadriceps tendinosis at its superior patellar insertion is seen. Diffusely thickened patellar tendon. Nonspecific subcutaneous soft tissue edema along anterior aspect of patella and patella tendon. Slight lateral subluxation of patella is seen. Patellofemoral ligaments are intact. Bones and cartilage: [id number] tricompartmental osteoarthritis and chondromalacia more notably in medial femoral tibial compartment and lateral portion of patellofemoral compartment. No fracture or dislocation. No suspicious intraosseous lesion. Joint space: There is moderate knee joint fluid. There is a Graves's cyst measures up to 2.2 x 3.1 x 3.9 cm in size. Normal appearing synovial plicae are incidentally noted. IMPRESSION: 1. Subtle oblique tear involving posterior horn of medial meniscus extending to inferior articulating surface. 2. Complex appearing horizontal oblique tear involving anterior horn of lateral meniscus extending to both superior and inferior articulating surfaces. 3. The cruciate ligaments are intact. Low-grade MCL sprain. 4. Distal quadriceps tendinosis and diffuse patellar tendinosis. Slight lateral subluxation of patella. 5. [id number] tricompartmental osteoarthritis and chondromalacia as above. No fracture or dislocation. 6. Moderate joint effusion and a Graves's cyst as above. No loose bodies. Dictated by: Fabiano Victoria M.D. on 06/08/2025 at 11:15 Approved by: Fabiano Victoria M.D. on 06/08/2025 at 11:19
--- NOTE | 2025-06-07 18:39 | DI.MRI.S_ITS ---
PROCEDURE: MR KNEE RT WO CON INDICATIONS: Bilateral knee pain TECHNIQUE: Noncontrast sagittal PD fast spin echo and T2 fast spin echo with fat saturation, sagittal 3-D FLASH with fat saturation; coronal T1 spin echo and PD fast spin echo with fat saturation, and axial PD fast spin echo with fat saturation through the knee. COMPARISON: [facility], MR, MR KNEE LT WO CON, 06/07/2025, 18:44. FINDINGS: Image quality: Excellent. Menisci: Peripheral displacement of medial meniscus bowing medial collateral ligament. Subtle oblique tear involving posterior horn of medial meniscus extending to inferior articulating surface is seen. There is suggestion of horizontal oblique tear involving anterior horn of lateral meniscus extending to inferior articulating surface. Cruciate ligaments: The anterior cruciate ligament appears thickened with subtle intrasubstance T2 hyperintense signal. The posterior cruciate ligament is intact. Medial structures: The medial collateral ligament appears mildly thickened near its femoral insertion. Visualized portions of the pes anserinus tendons appear normal. No abnormal bursal fluid. Lateral structures: The lateral collateral ligament, long and short heads of the biceps femoris tendon appear intact. The popliteus tendon appears intact. Iliotibial band appears normal. Anterior structures: Distal quadriceps tendinosis at its superior patellar insertion is seen. The patellar tendon is intact. Slight lateral subluxation of patella. The patellofemoral ligaments are intact. Bones and cartilage: No bone marrow contusions or fractures. [id number] tricompartmental osteoarthritis and chondromalacia of more notably in medial and lateral femoral tibial compartments. Joint space: There is moderate knee joint fluid. There is a Graves's cyst measures 3.7 x 2.2 x 6.2. Normal appearing synovial plicae are incidentally noted. IMPRESSION: 1. Peripheral displacement of medial meniscus bowing medial collateral ligament with subtle oblique tear involving posterior horn of medial meniscus extending to inferior articulating surface. 2. Horizontal oblique tear involving anterior horn of lateral meniscus extending to inferior articulating surface. 3. ACL sprain/myxoid degenerative changes. No ACL rupture. The PCL is intact. 4. Low-grade MCL sprain. 5. Distal quadriceps tendinosis. Slight lateral subluxation of patella. Patellofemoral ligaments are intact. 6. [id number] tricompartmental osteoarthritis as above. No fracture or dislocation. Moderate joint effusion and a Graves's cyst as above. No loose bodies. Dictated by: Fabiano Victoria M.D. on 06/08/2025 at 11:19 Approved by: Fabiano Victoria M.D. on 06/08/2025 at 11:27
== END ==
PROVIDERS: PCP Nurse Practitioner Family; Referring Provider Nurse Practitioner Family; Visit Provider Nurse Practitioner Family
DX: S83.272A Complex tear of lateral meniscus, current injury, left knee, initial encounter (principal); S83.241A Other tear of medial meniscus, current injury, right knee, initial encounter; S83.242A Other tear of medial meniscus, current injury, left knee, initial encounter; S83.281A Other tear of lateral meniscus, current injury, right knee, initial encounter; S83.412A Sprain of medial collateral ligament of left knee, initial encounter; S83.411A Sprain of medial collateral ligament of right knee, initial encounter; M17.0 Bilateral primary osteoarthritis of knee; M25.561 Pain in right knee; M25.562 Pain in left knee; M94.261 Chondromalacia, right knee; M94.262 Chondromalacia, left knee; M71.22 Synovial cyst of popliteal space [Baker], left knee; M71.21 Synovial cyst of popliteal space [Baker], right knee; M25.462 Effusion, left knee
CPT/HCPCS: 73721

== ENCOUNTER → 2025-07-15 08:57 | Outpatient (CLI) | payer OTHER, SELFPAY ==
--- NOTE | 2025-07-15 08:58 | DI.MRI.S_ITS ---
PROCEDURE: MR SHOULDER RT WO CON INDICATIONS: RT shoulder weakness; concern of rotator cuff tear TECHNIQUE: Noncontrast oblique coronal T2 fast spin echo with fat saturation, oblique sagittal T1 spin echo and T2 fast spin echo with fat saturation, axial T1 spin echo and T2 fast spin echo with fat saturation through the shoulder. COMPARISON: None. FINDINGS: Quality: Adequate. Tendons: Rotator cuff tendons: Less than 50% thickness interstitial tear of the superior 3rd of the subscapularis tendon. Full-thickness full width supraspinatus tendon tear with retraction at least 2.6 cm and additional delamination and retraction of the articular fibers approximately 3.6 cm. Full-thickness near full width tear of the infraspinatus tendon. Teres minor tendon is intact. Long head of biceps tendon: Large partial tear in the bicipital groove with medial subluxation. Muscles: Near complete fatty replacement of the teres minor muscle. Greater than 50% fatty degeneration of the infraspinatus muscle. No disproportionate fatty degeneration of subscapularis or supraspinatus muscles. Acromioclavicular joint: Moderate degenerative change. Glenohumeral joint: Labrum: Unremarkable. Cartilage: No focal defect. Fluid: Small effusion. Capsule: No pericapsular inflammation or scarring. Alignment: No dislocation. Bursa: Subacromial/subdeltoid bursa: Distended. Subcoracoid bursa: Nondistended. Bones: No fracture. Subacromial spurring. IMPRESSION: Full-thickness full width supraspinatus tendon tear. Full-thickness partial width subscapularis tendon tear with muscle fatty degeneration.. Intermediate-grade partial-thickness subscapularis tendon tear. Partial long head of biceps tendon tear and subluxation. 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 Dictated by: Soto Hernandez M.D. on 07/15/2025 at 12:23 Approved by: Soto Hernandez M.D. on 07/15/2025 at 12:28
== END ==
LOC: MRI 08:58
PROVIDERS: PCP Nurse Practitioner Family
DX: M75.111 Incomplete rotator cuff tear or rupture of right shoulder, not specified as traumatic (principal); S46.111A Strain of muscle, fascia and tendon of long head of biceps, right arm, initial encounter
CPT/HCPCS: 73221